=== PATIENT | female | born 1945 | race Caucasian/White ===

== ENCOUNTER 2019-04-05 08:29 | Outpatient (CLI) | payer MEDICARE, SELFPAY ==
--- NOTE | ~2019-04-05 | MM_ITS ---
EXAMINATION: MM screening [facility] BI w krystle HISTORY: Screening mammogram TECHNIQUE: Craniocaudal and mediolateral oblique 3-D tomosynthesis images were obtained and synthetic 2-D images were generated. CAD analysis was submitted and interpreted. COMPARISON: No prior mammogram is available for comparison at this institution. BREAST PARENCHYMAL COMPOSITION: There are scattered areas of fibroglandular density. FINDINGS: There is no evidence of suspicious mass, calcification, or architectural distortion to sugg est malignancy in either breast. There has been no suspicious interval change. IMPRESSION: 1. No mammographic evidence of malignancy. 2. Recommend routine screening mammography in one year. Reviewed, dictated and finalized at location A. [facility]
== END 2019-04-05 08:30 | disposition home or self-care (01) ==
LOC: ANHIMG 08:37
PROVIDERS: PCP Family Medicine; Visit Provider Internal Medicine
DX: Z12.31 Encounter for screening mammogram for malignant neoplasm of breast (principal)
CPT/HCPCS: 77063; 77067

== ENCOUNTER 2020-04-08 08:22 | Outpatient (CLI) | payer MEDICARE, SELFPAY ==
--- NOTE | ~2020-04-08 | MM_ITS ---
EXAMINATION: MM screening [facility] BI w krystle HISTORY: Screening TECHNIQUE: Craniocaudal and mediolateral oblique 3-D tomosynthesis images were obtained and synthetic 2-D images were generated. CAD analysis was submitted and interpreted. COMPARISON: Comparison to multiple prior studies sequentially, with oldest reviewed study dated 04/2015. BREAST PARENCHYMAL COMPOSITION: There are scattered areas of fibroglandular density. FINDINGS: There is no evidence of suspicious mass, calcification, or architectural distortion to sugg est malignancy in either breast. There has been no suspicious interval change. IMPRESSION: 1. No mammographic evidence of malignancy. 2. Recommend routine screening mammography in one year. BI-RADS Category 1: Negative Reviewed, dictated and finalized at location A. 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
== END 2020-04-08 08:23 | disposition home or self-care (01) ==
LOC: ANHIMG 08:26
PROVIDERS: PCP Physician Assistant; Visit Provider Internal Medicine
DX: Z12.31 Encounter for screening mammogram for malignant neoplasm of breast (principal)
CPT/HCPCS: 77063; 77067

== ENCOUNTER 2021-05-05 07:43 | Outpatient (CLI) | payer MEDICARE, SELFPAY ==
--- NOTE | ~2021-05-05 | MM_ITS ---
EXAMINATION: MM screening [facility] BI w krystle HISTORY: Screening mammogram TECHNIQUE: Craniocaudal and mediolateral oblique 3-D tomosynthesis images were obtained and synthetic 2-D images were generated. CAD analysis was submitted and interpreted. COMPARISON: 04/08/2020, 04/05/2019, 03/30/2018 BREAST PARENCHYMAL COMPOSITION: There are scattered areas of fibroglandular density. FINDINGS: There is no suspicious mass, calcification, or architectural distortion to suggest malignan cy in either breast. There has been no suspicious interval change. IMPRESSION: 1. No mammographic evidence of malignancy. 2. Recommend routine screening mammography in one year. BI-RADS Category 1: Negative Reviewed, dictated and finalized at location A.
== END 2021-05-05 07:44 | disposition home or self-care (01) ==
PROVIDERS: PCP Family Medicine; Visit Provider Family Medicine
DX: Z12.31 Encounter for screening mammogram for malignant neoplasm of breast (principal)
CPT/HCPCS: 77063; 77067

== ENCOUNTER 2021-06-23 09:22 | Emergency (ER) | payer MEDICARE, SELFPAY ==
--- NOTE | ~2021-06-23 | XR_ITS ---
EXAMINATION: XR chest 2V 06/23/2021 09:51 INDICATION: Cough PROCEDURE: 2 view chest COMPARISON: 08/18/2006 FINDINGS: The lungs are clear. The cardiomediastinal silhouette is within normal limits. There are no pleural effusions. There is no pneumothorax suspected. IMPRESSION: 1: NO ACUTE CARDIOPULMONARY DISEASE. Reviewed, dictated and finalized at location A.
[2021-06-23 09:30] VITALS: BP 141/74; PULSE 124; RESP 18; TEMP 37.6; O2SAT 98
--- NOTE | 2021-06-23 09:42 | ED.URI ---
HPI - URI/Sore Throat General Chief Complaint: Upper Respiratory Infection Stated Complaint: cough/congestion Time Seen by Provider: 06/23/21 09:32 Source: patient and RN notes reviewed Mode of arrival: ambulatory Limitations: no limitations History of Present Illness HPI Narrative: 75-year-old female presented for complaint of cough for 3 days. She endorses some sinus congestion and postnasal drainage for about 1 week. Cough is nonproductive, it causes urinary incontinence and rib pain. Cough is worse with lying flat. endorses hoarse voice. she denies Shortness of breath, malaise, lethargy, nausea, vomiting, diarrhea, fevers or chills. She has taken [id number] medications without relief. MD elicited complaint: cough Related Data Home Medications Medication Instructions Recorded Confirmed cholecalciferol (vitamin D3) 25 1,000 unit PO DAILY 12/11/18 06/23/21 mcg (1,000 unit) chewable tablet omeprazole magnesium 20 mg 20 mg PO DAILY 12/11/18 06/23/21 capsule,delayed release Allergies Allergy/AdvReac Type Severity Reaction Status Date / Time No Known Allergies Allergy Unknown Verified 06/23/21 09:39 Review of Systems Review of Systems: All systems reviewed & are unremarkable except as noted in HPI and below PMFSH Past Medical History Medical History Benign hypertension Bereavement Cancer of breast CKD (chronic kidney disease) stage 3, GFR 30-59 ml/min Diabetes Hypercholesterolemia Hyperlipidemia associated with type 2 diabetes mellitus Hyperlipidemia LDL goal <70 Overweight (BMI 25.0-29.9) Tachycardia Surgical History Surgical History History of total hysterectomy Family History Family History Other Breast cancer Diabetes mellitus Heart disease Hypertension Social History Social History Second hand tobacco smoke exposure: No Alcohol intake: never Substance use: never Substance use type: does not use Gender identity (if verbalized by the patient): Female Exam Narrative: GENERAL: Ill-appearing, nontoxic HEAD: Normocephalic EYES: conjunctivae clear ENT: Mucous membranes moist. TM pearly peña with dull light reflex bilaterally; no tragal tenderness. Hoarse voice. NECK: Supple. No lymphadenopathy CHEST: Clear to auscultation, breath sounds equal. No wheezing, rhonchi, rales, or stridor. No respiratory distress, speaks in full sentences. HEART: Regular rate and rhythm. No murmur heard. SKIN: Warm, dry, no rash. NEURO: Alert and oriented x3. PSYCH: Normal mood and affect Course Course Emergency Course: Patient is aware of diagnosis, understands and agrees to treatment plan. Anticipatory guidance given. Patient agrees to follow-up as directed and is aware of reasons to seek care at the emergency department. Portions of this record may have been created with voice recognition software Level of Care: Express Care Visit Vital Signs Vital signs: Vital Signs Temperature 99.7 F H 06/23/21 09:30 Pulse Rate 124 H 06/23/21 09:30 Respiratory Rate 18 06/23/21 09:30 Blood Pressure 141/74 H 06/23/21 09:30 Pulse Oximetry 98 06/23/21 09:30 Temperature 99.7 F H 06/23/21 09:30 Pulse Rate 124 H 06/23/21 09:30 Respiratory Rate 18 06/23/21 09:30 Blood Pressure 141/74 H 06/23/21 09:30 Pulse Oximetry 98 06/23/21 09:30 reviewed MDM - URI/Sore Throat MDM Narrative Medical decision making narrative: X-ray unremarkable, reviewed with patient. COVID and flu tests are negative. She is advised on supportive treatments. Antibiotic prescribed if symptoms persist/worsen. She is advised to follow-up with her PCP. For this understanding. She is Differential Diagnosis Differential diagnosis: Likely upper respiratory infection, sinusitis a
== END 2021-06-23 10:11 | disposition home or self-care (01) ==
PROVIDERS: Emergency Provider Nurse Practitioner Family; PCP Family Medicine
DX: J06.9 Acute upper respiratory infection, unspecified (principal); Z20.822 Contact with and (suspected) exposure to COVID-19; I12.9 Hypertensive chronic kidney disease with stage 1 through stage 4 chronic kidney disease, or unspecified chronic kidney disease; E11.22 Type 2 diabetes mellitus with diabetic chronic kidney disease; N18.30 Chronic kidney disease, stage 3 unspecified; Z79.84 Long term (current) use of oral hypoglycemic drugs; E78.00 Pure hypercholesterolemia, unspecified; E78.5 Hyperlipidemia, unspecified; Z85.3 Personal history of malignant neoplasm of breast; Z90.710 Acquired absence of both cervix and uterus
CPT/HCPCS: 71046; 87426; 87804; 99213; C9803; G0463

== ENCOUNTER 2022-02-10 08:00 | Outpatient (CLI) | payer MEDICARE, SELFPAY ==
[2022-02-10 11:00] LABS: Kit Draw Collected
== END 2022-02-10 08:01 | disposition home or self-care (01) ==
LOC: ANHGOSHLAB 08:03
PROVIDERS: PCP Family Medicine; Visit Provider Family Medicine
DX: Z00.00 Encounter for general adult medical examination without abnormal findings (principal); E78.2 Mixed hyperlipidemia; E11.9 Type 2 diabetes mellitus without complications; N18.30 Chronic kidney disease, stage 3 unspecified; E03.9 Hypothyroidism, unspecified; R53.83 Other fatigue
CPT/HCPCS: 36415

== ENCOUNTER 2022-06-18 07:16 | Outpatient (CLI) | payer MEDICARE, SELFPAY ==
--- NOTE | ~2022-06-18 | MM_ITS ---
EXAMINATION: MM screening [facility] BI w krystle HISTORY: Screening mammogram TECHNIQUE: Craniocaudal and mediolateral oblique 3-D tomosynthesis images were obtained and synthetic 2-D images were generated. CAD analysis was submitted and interpreted. COMPARISON: 05/05/2021, 04/08/2020, 04/05/2019 BREAST PARENCHYMAL COMPOSITION: There are scattered areas of fibroglandular density. FINDINGS: RIGHT BREAST: A focal asymmetry is present in the posterior third of the slightly upper breast approx imately 9.5 cm from the nipple.. LEFT BREAST: No suspicious mass, calcification, or architectural distortion are identified to suggest malignancy. There has been no suspicious interval change. IMPRESSION: 1. Focal asymmetry of the right breast. 2. Additional mammographic views and possible breast ultrasound are recommended. BI-RADS Category 0: Incomplete: Needs additional imaging evaluation. Reviewed, dictated and finalized at location A. IMPRESSION: 1. Focal asymmetry of the right breast. 2. Additional mammographic views and possible breast ultrasound are recommended . BI-RADS Category 0: Incomplete: Needs additional imaging evaluation.
== END 2022-06-18 07:17 | disposition home or self-care (01) ==
LOC: ANHIMG 07:17
PROVIDERS: PCP Family Medicine; Visit Provider Physician Assistant
DX: Z12.31 Encounter for screening mammogram for malignant neoplasm of breast (principal); R92.8 Other abnormal and inconclusive findings on diagnostic imaging of breast
CPT/HCPCS: 77063; 77067

== ENCOUNTER 2022-06-21 07:45 | Outpatient (CLI) | payer MEDICARE, SELFPAY ==
--- NOTE | ~2022-06-21 | DEXA_ITS ---
Bone Density Report Name: JARRETT KENNEDY Age: 76 Sex: Female Ethnicity: White Date of : 1945 Indication: postmenopausal; screening for osteoporosis; cancer; hysterectomy; Referring Provider: ROGERIO CREWS Study: Bone densitometry was performed. Exam Date: June 21, 2022 Accession number: [id number] Bone Density: Region BMD T-score Z-score Classification AP Spine(L1-L4) 1.217 1.5 4.0 Normal Femoral Neck (Left) 0.847 0.0 2.1 Normal Total Hip (Left) 1.031 0.7 2.6 Normal Femoral Neck (Right) 0.762 -0.8 1.4 Normal Total Hip (Right) 0.917 -0.2 1.7 Normal Total Hip Mean 0.974 0.3 2.2 Normal World Health Organization criteria for BMD impression classify patients as: Normal (T-score at or above -1.0), Osteopenia (T-score between -1.0 and -2.5), or Osteoporosis (T-score at or below -2.5). 10-year Fracture Risk: FRAX not reported because: All T-scores for Spine Total, Hip Total, Femoral Neck at or above -1.0 Clinical Information Provided by Patient: Has used the following medications: Vitamin D Has the following medical conditions: Cancer, Hysterectomy Patient maximum height was 64 Menopause Age: 50 Drinks caffeinated beverages Onset of menses at age 14 Number of children 3 Impression: The patient has normal bone mass. Discussion: BONE DENSITY IS ABOVE THE MINIMUM DESIRABLE LEVEL AT ALL SKELETAL SITES TESTED. This patient?s bone mineral density is above the minimum desirable level (T-score -1.0 or better) at all sites measured. The patient should follow a healthful lifestyle (good nutrition with adequate calcium and vitamin D, and appropriate weight-bearing exercise). Follow-Up: Consider repeating this study in 5 years or sooner if there is some new clinical indication. Reported by: [facility] on 06/21/2022 8:14:00 AM. Reviewed, dictated and finalized at location ARambo PRECIADO
== END 2022-06-21 07:46 | disposition home or self-care (01) ==
PROVIDERS: PCP Family Medicine; Visit Provider Family Medicine
DX: Z78.0 Asymptomatic menopausal state (principal)
CPT/HCPCS: 77080

== ENCOUNTER 2022-07-08 12:12 | Outpatient (CLI) | payer MEDICARE, SELFPAY ==
--- NOTE | ~2022-07-08 | MMUS_ITS ---
EXAMINATION: MM diagnostic vanessa RT w krystle, US breast RT limited HISTORY: Focal mammographic asymmetry reported in the posterior third of the slightly upper right nona ast approximately 9.5 cm from the nipple on 06/18/2022 screening mammogram TECHNIQUE: Additional 3-D tomosynthesis images of the right breast were performed and synthetic 2-D i mages were generated. CAD analysis was submitted and interpreted. High resolution upper outer quadran t left breast ultrasound was performed. COMPARISON: 06/18/2012, 05/05/2021 bilateral screening mammogram examinations FINDINGS: MAMMOGRAPHIC FINDINGS: Up to approximately 6-7 mm irregular spiculated mass is noted posteriorly in the upper outer quadrant of the right breast, a new finding since 05/05/2021. This is mammographically very suspicious. No other suspicious mass or architectural distortion is noted. ULTRASOUND: 10:00 7 cm from nipple: Irregular hypoechoic approximately 5 mm lesion is noted, corresponding to archana roximate position of the mammographic abnormality; biopsy is recommended. IMPRESSION: 1. Very suspicious mammographic and ultrasound mass in the posterior upper outer quadrant right breas t at 10:00 7 cm from nipple 2. Ultrasound-guided biopsy of right breast 10:00 lesion is recommended BI-RADS category 4, suspicious findings. Dr. Edmonds telephoned the report and ultrasound-guided biopsy recommendation on the right breast 10:00 lesion on 07/08/[address] Britton. Reviewed, dictated and finalized at location A. IMPRESSION: 1. Very suspicious mammographic and ultrasound mass in the posterior upper oute r quadrant right breast at 10:00 7 cm from nipple 2. Ultrasound-guided biopsy of right breast 10:00 lesion is recommended BI-RADS category 4, suspicious findings. Dr. Edmonds telephoned the report and ultrasound-guided biopsy recommendation on t he right breast 10:00 lesion on 07/08/20[address] Britton.
== END 2022-07-08 12:13 | disposition home or self-care (01) ==
LOC: ANHIMG 12:13
PROVIDERS: PCP Family Medicine; Visit Provider Physician Assistant
DX: R92.8 Other abnormal and inconclusive findings on diagnostic imaging of breast (principal)
CPT/HCPCS: 76642; 77061; 77065; G0279

== ENCOUNTER 2022-07-26 09:54 | Outpatient (CLI) | payer MEDICARE, SELFPAY ==
--- NOTE | ~2022-07-26 | MMUS_ITS ---
EXAMINATION: US GUIDED NEEDLE BIOPSY DATE: 07/26/2022 11:25 CDT INDICATION: Up to approximately 6-7 mm irregular spiculated new mammographic mass in posterior upper outer quadrant of right breast reported on 07/08/2022 diagnostic right mammogram, with irregular hypoec hoic approximately 5 mm lesion noted at 10:00 7 cm from nipple on 07/08/2022 Limited right breast ultra sound examination TECHNIQUE AND FINDINGS: The risks and potential benefits of the procedure were discussed with the patient, and written inform ed consent was obtained. Timeout procedure was performed. After sterile preparation of the right radha st, 1% lidocaine was utilized for local anesthesia. A 14G spring-loaded biopsy gun needle was advanced into the hypoechoic lesion at 10:00 7 cm from the nipple from an anteromedial approach. A total of 4 tissue core samples were obtained through the lesi on. An Inrad tissue marker clip was then placed at the biopsy site. Hemostasis was achieved. A steri le bandage was applied. The patient tolerated procedure well and there was no evidence of immediate complication. The patien t was given verbal instructions prior to departing from the department. A two view mammogram was perf ormed to document tissue marker clip placement. Importantly, the tissue marker placement corresponds to the location of the spiculated small mammographic opacity. The tissue samples were submitted to surgical pathology for histologic analysis. IMPRESSION: Ultrasound guided biopsy of right 10:00 breast mass, which corresponds to the mammographic mass of co ncern on post-biopsy mammogram, with biopsy marker placement. Please refer to pathology report for hi stologic analysis. Reviewed, dictated and finalized at Location A. Reviewed, dictated and finalized at location A. IMPRESSION: Ultrasound guided biopsy of right 10:00 breast mass, which corresponds to the m ammographic mass of concern on post-biopsy mammogram, with biopsy marker placem ent. Please refer to pathology report for histologic analysis.
== END 2022-07-26 09:55 | disposition home or self-care (01) ==
PROVIDERS: PCP Family Medicine; Visit Provider Family Medicine
DX: R92.8 Other abnormal and inconclusive findings on diagnostic imaging of breast (principal); D05.11 Intraductal carcinoma in situ of right breast
CPT/HCPCS: 19083; 88305; 88342; 88360; A4648

== ENCOUNTER 2022-08-02 09:27 | Outpatient (CLI) | payer MEDICARE, SELFPAY ==
--- NOTE | 2022-08-02 09:57 | ECG_ITS ---
Measurements Intervals Harleigh Rate: 62 P: 41 DE: 140 QRS: 22 QRSD: 85 T: 35 QT: 403 QTc: 412 Interpretive Statements SINUS RHYTHM NO PREVIOUS ECG AVAILABLE FOR COMPARISON Electronically Signed On 08-02-2022 13:55:54 CDT by Kera Francis M.D.
== END 2022-08-02 09:28 | disposition home or self-care (01) ==
LOC: ANHCARD 09:31
PROVIDERS: PCP Family Medicine; Visit Provider Family Medicine
DX: I10 Essential (primary) hypertension (principal)
CPT/HCPCS: 93005

== ENCOUNTER 2022-08-19 09:42 | Outpatient (CLI) | payer MEDICARE, SELFPAY ==
--- NOTE | ~2022-08-19 | MM_ITS ---
MM_MAGSEEDRT_MG DATE: 08/19/2022 11:23 INDICATION: Breast cancer; preoperative Magseed placement TECHNIQUE: The purpose of the procedure, technique and potential complications were discussed with e patient, who indicated understanding and gave consent. The right breast was placed in compression in craniocaudal position with biopsy grid over the area of interest. The position of the marker was noted. The skin was prepared with sterile Betadine. 1% L idocaine was placed at the skin and underlying subcutaneous tissues. A 12 cm Magseed needle was placed from above on craniocaudal view, the biopsy marker could be felt wi needle introduction. Mediolateral mammographic view showed needle depth, leading to adjustment of the needle to the approp riate depth, with repeat ML view confirming appropriate position. The Magseed was then deployed and the needle removed. Final ML and CC views confirmed the Magseed contiguous with the pre-existing marker in the posterior upper outer quadrant in CC view and within 5.4 mm of the marker inferiorly on ML view COMPARISON: 07/26/2022 post biopsy diagnostic right mammogram IMPRESSION: Mammographically guided Magseed placement at recent marker at posterior upper outer quadr ant of right breast Reviewed, dictated and finalized at Location A. Reviewed, dictated and finalized at location A. IMPRESSION: Mammographically guided Magseed placement at recent marker at poste rior upper outer quadrant of right breast
== END 2022-08-19 09:43 | disposition home or self-care (01) ==
PROVIDERS: PCP Family Medicine; Visit Provider Surgery
DX: C50.911 Malignant neoplasm of unspecified site of right female breast (principal)
CPT/HCPCS: 19281; 99212; A4648; G0463

== ENCOUNTER 2022-09-09 07:50 | Outpatient (CLI) | payer MEDICARE, SELFPAY ==
[2022-09-09 08:35] LABS: Prothrombin Time 13.8 Seconds (11.1-14.7)
[2022-09-09 08:40] LABS: Anion Gap 15 mmol/L (8-16); Blood Urea Nitrogen 18 mg/dL (7-17); Calcium 9.3 mg/dL (8.4-10.2); Carbon Dioxide 19 mmol/L (22-30); Chloride 104 mmol/L (98-107); Estimated Glomerular Filt Rate 48; Glucose 165 mg/dL (65-110); Potassium 3.7 mmol/L (3.4-5.0); Sodium 138 mmol/L (137-145)
== END 2022-09-09 07:51 | disposition home or self-care (01) ==
LOC: ANHSURGERY 07:54
PROVIDERS: Anesthesiology; PCP Family Medicine; Visit Provider Surgery
DX: Z01.812 Encounter for preprocedural laboratory examination (principal); N18.30 Chronic kidney disease, stage 3 unspecified; E11.22 Type 2 diabetes mellitus with diabetic chronic kidney disease; E78.5 Hyperlipidemia, unspecified
CPT/HCPCS: 36415; 80048; 85610; 85730

== ENCOUNTER 2022-09-15 00:22 | Day surgery (SDC) | payer MEDICARE, SELFPAY ==
[2022-09-06 10:50] VITALS: BMI 28.8
--- NOTE | 2022-09-06 11:02 | PC.NURSE ---
PRE-OP INSTRUCTIONS, PLEASE READ CAREFULLY Report to the Outpatient Waiting Room, entrance under the green pavilion located off [facility], at time _1000_ on date _09/15/22_. Planned Procedure Time: _1200_. Time changes happen often and if your time is changed the preop area will call you the afternoon before. - You and your visitor will be asked to self-screen and do not enter if you have any COVID symptoms. - A mask is optional within the hospital at this time. Patients may have clear liquids (water, carbonated beverages, clear teas, apple juice) until 3 hours prior to surgery (0900 AM) with a maximum of 20 ounces. - No food from midnight until time of surgery Take the following medications with a SIP of water the morning of surgery: _NONE_ DO NOT STOP ANY OF YOUR OTHER PRESCRIPTION MEDICATIONS PRIOR TO SURGERY ?EXCEPT THE FOLLOWING Medications to discontinue per physician __NONE__, Date to take last dose Please no make-up, nail lithuanian, hairspray, perfume, deodorant, or body powder the day of surgery. No jewelry (including any body piercings) or valuables the day of surgery, leave them at home. Please take a shower or bath the night before, or the morning of, surgery with an antibacterial soap. Wear comfortable, loose fitting clothing. - Jewelry must be removed prior to entering the operating room. Rings and piercings that are not removed may be cut off. - The hospital will not accept responsibility for valuables. - Please leave all valuables, including medications, at home the day of surgery. If you are going home after surgery, a licensed limousine driver must drive you home. - NO public transportation without another adult if you receive anesthesia. - We recommend that an adult stay with you for 24 hours following discharge. - We also recommend that you do not drive, make important decision, drink alcoholic beverages, or take any drugs that were not prescribed by your health care provider for at least 24 hours after your discharge time. Follow any additional instructions given to you from your surgeon. If you or anyone in your household have experienced Covid symptoms in the past week, please notify your surgeon or the nurse liaison at the phone number below for possible testing. Telephone instructions given to _PATIENT_and asked if any additional questions and then verbalized understanding. Patient advised to call surgeon office or pre surgery nurse liaison [phone] if any additional questions.
[2022-09-15] VITALS (8 sets, daily range): BP systolic 113–128; BP diastolic 59–74; PULSE 60–88; RESP 12–19; TEMP 36.4–36.8; O2SAT 92–100
--- NOTE | ~2022-09-15 | MM_ITS ---
EXAMINATION: MM_FAXITRON_MG INDICATION: Right breast cancer, lumpectomy specimen TECHNIQUE: Three specimen images are submitted for review. COMPARISON: None available FINDINGS: Specimen radiographs demonstrate the biopsy marker and magseed within the specimen these fi ndings were discussed with Dr. Koki Moctezuma MD at 1440 hours on 09/15/2022. IMPRESSION: 1. Biopsy marker and magseed within the specimen radiograph. Reviewed, dictated and finalized at location A.
--- NOTE | ~2022-09-15 | NM_ITS ---
EXAMINATION: NM sentinel node inject only INDICATION: Right breast cancer TECHNIQUE: 1.030 mCi Tc 99m Lymphoseek were injected in 4 aliquots in the upper outer quadrant of the breast near the areola. No images were obtained. IMPRESSION: 1. Status post right breast sentinel lymph node radiopharmaceutical injection. Please refer to proced ure note for full details. Reviewed, dictated and finalized at location A. IMPRESSION: 1. Status post right breast sentinel lymph node radiopharmaceutical injection. Please refer to procedure note for full details.
--- NOTE | 2022-09-15 10:12 | WPDHPUPDATE1 ---
History and Physical Update Update Date/Time: 09/15/22 10:12 History and Physical has been reviewed, including an updated exam of the patient. There are NO changes in the patient's condition. Risks, benefits, and alternatives have been discussed and questions answered. Patient agrees to proceed with procedure.
--- NOTE | 2022-09-15 11:35 | WPDANESEPPF ---
Anes - Initial Pre Proc Eval Procedure: Operation Date: 09/15/22 12:00 Proposed Procedures p Right Breast Lumpectomy with [place] Lymph Node Biopsy - Koki Moctezuma MD Date/Time: 09/15/22 11:35 Surgeon: Koki Moctezuma MD Pre Op Diagnosis: Malignant Neoplasm Unspecified Site Right Breast Patient Data Age: 76 Gender: F Height: 1.63 m Weight: 76.36 kg Allergies Allergy/AdvReac Type Severity Reaction Status Date / Time No Known Allergies Allergy Unknown Verified 09/06/22 10:45 Home Medications Medication Instructions Recorded Confirmed Type cholecalciferol (vitamin D3) 25 1,000 unit PO DAILY 12/11/18 09/06/22 History mcg (1,000 unit) chewable tablet omeprazole magnesium 20 mg 20 mg PO DAILY 12/11/18 09/06/22 History capsule,delayed release simvastatin 20 mg tablet 20 mg PO DAILY #90 tabs 01/31/22 09/06/22 Rx lancets [facility] ea 02/15/22 09/06/22 Rx Lancets) metformin 500 mg tablet,extended 2,000 mg PO DAILY #360 tabs 02/15/22 09/06/22 Rx release 24 hr triamterene 37.5 1 cap PO DAILY #90 caps 02/16/22 09/06/22 Rx mg-hydrochlorothiazide 25 mg capsule blood sugar diagnostic ([facility] e[facility] 05/15/22 09/06/22 Rx Verio test strips) doxazosin 2 mg tablet See Rx Instructions .Route 06/24/22 09/06/22 Rx .COMPLEX #90 tabs glipizide 5 mg tablet, extended 5 mg PO DAILY #90 tabs 08/02/22 09/06/22 Rx release 24 hr semaglutide 3 mg tablet (Rybelsus) 3 mg PO DAILY #90 tabs 08/03/22 09/06/22 Rx lisinopril 20 mg tablet 20 mg PO DAILY #90 tabs 08/16/22 09/06/22 Rx escitalopram oxalate 10 mg tablet 0.5 mg PO HS 09/06/22 09/06/22 History valacyclovir 1 gram tablet 1,000 mg PO Q12H PRN FEAVER 08/01/23 08/01/23 History (Valtrex) BLISTERS Patient hx anesthesia problems: none Family hx anesthesia problems: none Results Review: All pre-operative results and documents have been reviewed as part of the pre-operative evaluation. [facility] Past Medical History Medical History Benign hypertension Bereavement Cancer of breast CKD (chronic kidney disease) stage 3, GFR 30-59 ml/min Diabetes Hypercholesterolemia Hyperlipidemia associated with type 2 diabetes mellitus Hyperlipidemia LDL goal <70 Overweight (BMI 25.0-29.9) Tachycardia Surgical History Surgical History History of total hysterectomy Family History Family History Other Breast cancer Diabetes mellitus Heart disease Hypertension Social History Social History Smoking status: Never smoker Second hand tobacco smoke exposure: No Alcohol intake: never Substance use: never Substance use type: does not use Lack of Transportation: No Lack of Food: Never True Current Housing: I Have Housing Concerned About Future Housing: No Difficulty Paying Gas/Electric Bills: No Difficulty Paying for Meds: No Currently Unemployed: No Education: High School Diploma/GED Difficulty w/ Childcare or Family Care: No Living arrangements: with family Gender identity (if verbalized by the patient): Female Sexual Orientation (if Verbalized by the Patient): Straight or Heterosexual Spiritual care concerns: No Agree to blood products: Yes Anes - Eval Final PreProcedure Day of Procedure 09/15/22 11:35 Patient weight: normal Heart: regular rate and rhythm Lungs: clear to auscultation Airway: Mallampati scale class II Neurological: alert and oriented Last oral intake: >/= 8 hours ASA classification: III Emergent: no Anesthetic plan: proceed Anesthesia type and monitoring: general GIVS and LMA and standard monitoring Results Review: All pre-operative results and documents have been reviewed as part of the pre-operative evaluation. Informed Consent:
[2022-09-15 11:38] LABS: Glucose Point of Care 82 mg/dl (65-105)
[2022-09-15] MEDS: ACETAMINOPHEN 500 MG TABLET 1000 MG PO (11:50)
[2022-09-15] MEDS: LACTATED RINGERS 1,000 ML 30 ML IV CONT ×2 (11:50→14:55)
[2022-09-15] MEDS: ceFAZolin 2 GM/D5W 50 ML 2 GM/50 ML BAG IVPB (12:50)
[2022-09-15] MEDS: BUPIVACAINE/EPINEPHRINE 0.25% 10 ML VIAL 20 ML INFILTRATE (13:35)
[2022-09-15] MEDS: METHYLENE BLUE 0.5% INJ 10 ML AMPULE XX (13:40)
--- NOTE | 2022-09-15 13:46 | SUR.OPER ---
1340: SLN excised and sent to Lab [facility] for confirmation node present in Specimen. 1343: Specimen sent to Lab per Lorraine, PCT. 1347: Specimen received by Jayda in Lab. 1350: Node confirmed per Amadeo (Pathologist). 1424: Lumpectomy excised. 1428: MAMMS notified that breast tissue is being scanned per Faxitron. Awaiting confirmation from Radiologist. 1431: Right Breast Lumpectomy Specimen sent Fresh to Lab.
--- NOTE | 2022-09-15 14:49 | W.PM.PROC2 ---
Procedure Note - Detailed Date of Procedure 09/15/22 Pre-op Diagnosis Invasive ductal carcinoma of right breast Post-op Diagnosis Same Procedure Performed 1. Right lumpectomy with magseed localization 2. Right axillary sentinel lymph node biopsy using dual tracer with lymphoseek and methylene blue 3. Injection of diluted 1:10 methylene blue dye Surgeon Koki Moctezuma MD Matching Machine Operator Merari Hernandez PA-C Anesthesia General Indications 76-year-old female with a previous history right breast DCIS status post lumpectomy 2014 with no adjuvant radiation who presented for? newly diagnosed right breast invasive ductal carcinoma, ER positive, TX negative, HER2 negative, Ki-67 intermediate a 17%,? Soren grade 1.? I discussed with the patient again the surgical options of mastectomy versus lumpectomy as well as expected postoperative recovery course.? Given the patient's previous history of DCIS on the right breast and concern for recurrent disease, I discussed with the patient that I would highly recommend adjuvant radiation in her case to decrease the risk of LRR as well.? Also with her previous history of the DCIS and now with invasive ductal carcinoma, I discussed with the patient that I would likely recommend a sentinel lymph node biopsy in her case, as in the unlikely event that this comes back positive, patient would likely benefit from axillary radiation as well.? Given that she is at higher risk with a previous history as well as the fact that patient does not fit the criteria for the choosing wisely guidelines, again I think she would be a good candidate for sentinel lymph node biopsy in her case specifically.? Risks of the procedure were discussed with the patient which included but not limited to risk of bleeding, infection, recurrence, positive margins, possible need for additional procedures in the future, wound healing problems, asymmetry, scar, pain, damage to nearby structures as well as the risk of anesthesia.? All questions were answered and patient has agreed to proceed.? Description of Procedure Patient was identified in the pre-operative area and brought to the OR suite. She underwent tumor localization previously by IR with magseed placement as well as injection of lymphoseek radiotracer in Nuclear Med. She was laid supine in the operating table and sequential compression devices were applied. General anesthesia was induced without difficulties. The right chest and axillary regions were prepped and draped in a sterile fashion. Dilated methylene blue (10%) was injected into the perioareolar sudermal region as a second tracer. The gamma probe was used to identify the area with highest radioactivity in the axilla, and a small incision was made overlying this area. Dissection was carried down through the subcutaneous tissue into the clavipectoral fascia, which was incised. The probe was again used to scan this area, and a hot and blue node was identified. This was carefully grasped and excised using the Ligasure device. The gamma probe was used to confirm that this node was radioactive with a read of 362. The gamma probe was again used to identify any additional radioactive lymph nodes that 10% or greater count compared to the sentinel node. Once this performed, the lymph node was sent to pathology as permanent specimen. The probe was used to verify that no additional areas of significant radioactivity in the axilla were present, and this was confirmed. The wound was irrigated with saline and hemostasis was assured. The deep dermal layer was closed with 3-0 vicryl followed by 4-0 monocryl for the skin. Dermabond was applied followed by a sterile dressing. Attention was then turned to the breast. The sentimag probe was used to identify the area where the magseed was placed and since this was inferior lateral on exam, decision was made to use a lateral IMF incision. Dissection was carried down through the subcutaneous tissue into the breast tissue. The tumor
[2022-09-15] MEDS: HYDROmorphone HCL INJ (*CRX) 1 MG/ML SYR 0.25 MG IV PUSH ×6 (15:13→15:47)
[2022-09-15 15:17] LABS: Glucose Point of Care 130 mg/dl (65-105)
[2022-09-15] MEDS: oxyCODONE HCL (*CRX) 5 MG TAB IR PO (16:08)
== END 2022-09-15 16:54 | disposition home or self-care (01) ==
PROVIDERS: PCP Family Medicine; Visit Provider Surgery
PROC: (CPT 19301; principal; 2022-09-15 12:00)
DX: C50.911 Malignant neoplasm of unspecified site of right female breast (principal); Z17.0 Estrogen receptor positive status [ER+]; I12.9 Hypertensive chronic kidney disease with stage 1 through stage 4 chronic kidney disease, or unspecified chronic kidney disease; N18.30 Chronic kidney disease, stage 3 unspecified; E11.22 Type 2 diabetes mellitus with diabetic chronic kidney disease; E78.00 Pure hypercholesterolemia, unspecified; E78.5 Hyperlipidemia, unspecified; Z79.84 Long term (current) use of oral hypoglycemic drugs
CPT/HCPCS: 19301; 38525; 38792; 76098; 82948; 88305; 88307; 88329; 88342; A9270; A9520; C1713; J0690; J1170; J3010; J7120; Q9968

== ENCOUNTER 2023-01-25 08:21 | Outpatient (CLI) | payer MEDICARE, SELFPAY ==
[2023-01-25 08:43] LABS: Basophils Absolute Auto 0.1 K/mm3 (0.0-0.1); Basophils Percent Auto 0.6 % (0.2-1.2); Eosinophils Absolute Auto 0.2 K/mm3 (0-0.3); Eosinophils Percent Auto 1.9 % (0-4.4); Hematocrit 35.8 % (37.0-47.0); Hemoglobin 11.2 g/dL (12.0-15.0); Immature Granulocyte Absolute 0.03 K/mm3 (0.00-0.031); Immature Granulocyte Percent A 0.4 % (0-0.5); Lymphocytes Absolute Auto 2.01 K/mm3 (0.9-3.2); Lymphocytes Percent Auto 26.1 % (18.3-44.2); Mean Corpuscular HGB Conc 31.3 g/dl (32-36); Mean Corpuscular Hemoglobin 25.7 pg (26-34); Mean Corpuscular Volume 82.3 fl (80-100); Mean Platelet Volume 8.9 fl (7.4-10.4); Monocytes Absolute Auto 0.5 K/mm3 (0.1-0.6); Neutrophils Absolute Auto 4.9 K/mm3 (1.3-6.7); Platelet Count Result 236 k/mm3 (150-375); Red Blood Count 4.35 M/mm3 (4.2-5.4); Red Cell Distribution Width 14.5 % (11.5-14.5); White Blood Count 7.7 K/mm3 (4.5-10.0)
[2023-01-25 10:12] LABS: Alanine Aminotransferase 16 U/L (6-35); Alkaline Phosphatase 76 U/L (38-126); Anion Gap 7 mmol/L (8-16); Aspartate Amino Transferase 22 U/L (14-36); Bilirubin,Total 0.7 mg/dL (0.2-1.3); Blood Urea Nitrogen 16 mg/dL (7-17); Carbon Dioxide 26 mmol/L (22-30); Chloride 104 mmol/L (98-107); Cholesterol 143 mg/dL (0-200); Estimated Glomerular Filt Rate 48; Glucose 91 mg/dL (65-110); HDL Direct 42 mg/dL; Potassium 3.6 mmol/L (3.4-5.0); Sodium 137 mmol/L (137-145); Triglycerides 160 mg/dL (<150)
[2023-01-25 10:18] LABS: Hemoglobin A1C 6.7 % (<5.7)
[2023-01-25 10:24] LABS: LDL Cholesterol Direct 72 mg/dL
[2023-01-31 14:39] LABS: CA 15-3 8 U/mL (<32)
== END 2023-01-25 08:22 | disposition home or self-care (01) ==
LOC: ANHLAB 08:23
PROVIDERS: PCP Family Medicine; Visit Provider Internal Medicine Hematology & Oncology
DX: E78.2 Mixed hyperlipidemia (principal); E11.9 Type 2 diabetes mellitus without complications; R53.83 Other fatigue; C50.411 Malignant neoplasm of upper-outer quadrant of right female breast
CPT/HCPCS: 36415; 80053; 80061; 83036; 84443; 85025; 86300

== ENCOUNTER 2023-04-21 12:00 | Outpatient (CLI) | payer MEDICARE, SELFPAY ==
--- NOTE | ~2023-04-21 | MMUS_ITS ---
EXAMINATION: MM diagnostic vanessa BI w krystle, US breast RT limited HISTORY: Postoperative lump and tenderness. Status post right partial mastectomy and radiotherapy for breast cancer TECHNIQUE: Additional 3-D tomosynthesis images of were performed and synthetic 2-D images were genera vero. CAD analysis was submitted and interpreted. High resolution breast ultrasound was performed. COMPARISON: 07/08/2022 diagnostic right mammogram and limited right breast ultrasound FINDINGS: MAMMOGRAPHIC FINDINGS: Approximately 4.3 x greater than 5 cm circumscribed low-density mass is noted in the right axillary t ail area. Additional approximately 1.5 x 2.1 cm low-density opacity is noted in the right axilla. Multiple surgical clips are noted in the posterior outer mid to upper right breast. Scattered bilateral benign calcifications are noted. ULTRASOUND: Subjacent to the surgical incision the right axillary area is a 1.5 x 1.4 x 1.9 cm sonolucency with t hrough transmission posterior enhancement, most consistent with postoperative seroma. At 9:00 11 cm from the nipple at the area of incision is a circumscribed sonolucency measuring approx imately 3 x 6 cm, likely postoperative seroma. IMPRESSION: 1. Probable postoperative seromas in the right axillary tail and right axilla 2. Routine annual mammographic screening is recommended, with supplemental imaging as clinically appr opriate BI-RADS Category 2: Benign finding(s). Reviewed, dictated and finalized at location A. IMPRESSION: 1. Probable postoperative seromas in the right axillary tail and right axilla 2. Routine annual mammographic screening is recommended, with supplemental imag ing as clinically appropriate BI-RADS Category 2: Benign finding(s).
== END 2023-04-21 12:01 | disposition home or self-care (01) ==
LOC: ANHIMG 12:02
PROVIDERS: PCP Family Medicine; Visit Provider Physician Assistant Surgical
DX: N63.11 Unspecified lump in the right breast, upper outer quadrant (principal); R92.8 Other abnormal and inconclusive findings on diagnostic imaging of breast
CPT/HCPCS: 76642; 77062; 77066; G0279

== ENCOUNTER 2023-04-27 08:15 | Outpatient (CLI) | payer MEDICARE, SELFPAY ==
[2023-04-27 08:36] LABS: Basophils Percent Auto 0.6 % (0.2-1.2); Eosinophils Absolute Auto 0.1 K/mm3 (0-0.3); Eosinophils Percent Auto 1.8 % (0-4.4); Hematocrit 36.7 % (37.0-47.0); Hemoglobin 11.5 g/dL (12.0-15.0); Immature Granulocyte Absolute 0.02 K/mm3 (0.00-0.031); Immature Granulocyte Percent A 0.3 % (0-0.5); Lymphocytes Absolute Auto 1.75 K/mm3 (0.9-3.2); Lymphocytes Percent Auto 25.8 % (18.3-44.2); Mean Corpuscular HGB Conc 31.3 g/dl (32-36); Mean Corpuscular Hemoglobin 25.5 pg (26-34); Mean Corpuscular Volume 81.4 fl (80-100); Mean Platelet Volume 9.1 fl (7.4-10.4); Monocytes Absolute Auto 0.4 K/mm3 (0.1-0.6); Monocytes Percent Auto 5.7 % (2.6-8.5); Neutrophils Absolute Auto 4.5 K/mm3 (1.3-6.7); Neutrophils Percent Auto 65.8 % (45.5-73.1); Platelet Count Result 244 k/mm3 (150-375); Red Blood Count 4.51 M/mm3 (4.2-5.4); White Blood Count 6.8 K/mm3 (4.5-10.0)
[2023-04-27 17:01] LABS: Alanine Aminotransferase 17 U/L (6-35); Albumin Level 4.2 g/dL (3.5-5.1); Alkaline Phosphatase 64 U/L (38-126); Anion Gap 8 mmol/L (8-16); Aspartate Amino Transferase 25 U/L (14-36); Bilirubin,Total 0.5 mg/dL (0.2-1.3); Blood Urea Nitrogen 19 mg/dL (7-17); Calcium 9.4 mg/dL (8.4-10.2); Carbon Dioxide 22 mmol/L (22-30); Chloride 107 mmol/L (98-107); Estimated Glomerular Filt Rate > 60; Glucose 168 mg/dL (65-110); Potassium 3.8 mmol/L (3.4-5.0); Sodium 137 mmol/L (137-145)
[2023-04-30 07:59] LABS: CA 15-3 7 U/mL (<32)
== END 2023-04-27 08:16 | disposition home or self-care (01) ==
PROVIDERS: PCP Family Medicine; Visit Provider Internal Medicine Hematology & Oncology
DX: C50.411 Malignant neoplasm of upper-outer quadrant of right female breast (principal); Z17.0 Estrogen receptor positive status [ER+]
CPT/HCPCS: 36415; 80053; 85025; 86300

== ENCOUNTER → 2023-05-15 08:45 | Outpatient (REF) | payer MEDICARE, SELFPAY | LOC: ANHLAB 08:45 | PROVIDERS: PCP Family Medicine; Visit Provider Surgery | DX: C50.911 Malignant neoplasm of unspecified site of right female breast (principal); N64.89 Other specified disorders of breast | CPT/HCPCS: 88108; 88305 ==

== ENCOUNTER 2023-07-21 08:40 | Outpatient (CLI) | payer MEDICARE, SELFPAY ==
[2023-07-21 09:37] LABS: Basophils Absolute Auto 0.1 K/mm3 (0.0-0.1); Basophils Percent Auto 0.7 % (0.2-1.2); Eosinophils Absolute Auto 0.1 K/mm3 (0-0.3); Eosinophils Percent Auto 1.4 % (0-4.4); Hematocrit 35.3 % (37.0-47.0); Hemoglobin 11.1 g/dL (12.0-15.0); Immature Granulocyte Absolute 0.02 K/mm3 (0.00-0.031); Immature Granulocyte Percent A 0.3 % (0-0.5); Lymphocytes Percent Auto 29.2 % (18.3-44.2); Mean Corpuscular HGB Conc 31.4 g/dl (32-36); Mean Corpuscular Hemoglobin 25.4 pg (26-34); Mean Corpuscular Volume 80.8 fl (80-100); Mean Platelet Volume 9.7 fl (7.4-10.4); Monocytes Absolute Auto 0.5 K/mm3 (0.1-0.6); Monocytes Percent Auto 6.4 % (2.6-8.5); Neutrophils Absolute Auto 4.5 K/mm3 (1.3-6.7); Platelet Count Result 235 k/mm3 (150-375); Red Blood Count 4.37 M/mm3 (4.2-5.4); Red Cell Distribution Width 15.3 % (11.5-14.5); White Blood Count 7.2 K/mm3 (4.5-10.0)
[2023-07-21 16:41] LABS: Alanine Aminotransferase 14 U/L (6-35); Albumin Level 4.1 g/dL (3.5-5.1); Alkaline Phosphatase 67 U/L (38-126); Anion Gap 10 mmol/L (4-12); Aspartate Amino Transferase 20 U/L (14-36); Bilirubin,Total 0.4 mg/dL (0.2-1.3); Blood Urea Nitrogen 14 mg/dL (7-17); Calcium 8.9 mg/dL (8.4-10.2); Carbon Dioxide 21 mmol/L (22-30); Chloride 109 mmol/L (98-107); Estimated Glomerular Filt Rate 54; Glucose 151 mg/dL (65-110); Potassium 3.8 mmol/L (3.4-5.0); Sodium 140 mmol/L (137-145)
[2023-07-25 06:33] LABS: CA 15-3 6 U/mL (<32)
== END 2023-07-21 08:41 | disposition home or self-care (01) ==
LOC: ANHLAB 08:42
PROVIDERS: PCP Family Medicine; Visit Provider Internal Medicine Hematology & Oncology
DX: C50.411 Malignant neoplasm of upper-outer quadrant of right female breast (principal); Z17.0 Estrogen receptor positive status [ER+]
CPT/HCPCS: 36415; 80053; 85025; 86300

== ENCOUNTER 2023-10-27 08:15 | Outpatient (CLI) | payer MEDICARE, SELFPAY ==
[2023-10-27 08:35] LABS: Basophils Absolute Auto 0.1 K/mm3 (0.0-0.1); Basophils Percent Auto 0.9 % (0.2-1.2); Eosinophils Absolute Auto 0.1 K/mm3 (0-0.3); Eosinophils Percent Auto 1.3 % (0-4.4); Immature Granulocyte Absolute 0.02 K/mm3 (0.00-0.031); Immature Granulocyte Percent A 0.3 % (0-0.5); Lymphocytes Absolute Auto 1.74 K/mm3 (0.9-3.2); Mean Corpuscular HGB Conc 31.7 g/dl (32-36); Mean Corpuscular Hemoglobin 27.4 pg (26-34); Mean Corpuscular Volume 86.3 fl (80-100); Mean Platelet Volume 9.2 fl (7.4-10.4); Monocytes Absolute Auto 0.4 K/mm3 (0.1-0.6); Monocytes Percent Auto 5.7 % (2.6-8.5); Neutrophils Absolute Auto 4.4 K/mm3 (1.3-6.7); Neutrophils Percent Auto 65.8 % (45.5-73.1); Platelet Count Result 238 k/mm3 (150-375); Red Blood Count 4.75 M/mm3 (4.2-5.4); Red Cell Distribution Width 14.6 % (11.5-14.5); White Blood Count 6.7 K/mm3 (4.5-10.0)
[2023-10-27 10:52] LABS: Alanine Aminotransferase 18 U/L (6-35); Albumin Level 4.4 g/dL (3.5-5.1); Alkaline Phosphatase 74 U/L (38-126); Anion Gap 11 mmol/L (4-12); Aspartate Amino Transferase 25 U/L (14-36); Bilirubin,Total 0.6 mg/dL (0.2-1.3); Blood Urea Nitrogen 16 mg/dL (7-17); Calcium 9.5 mg/dL (8.4-10.2); Carbon Dioxide 25 mmol/L (22-30); Chloride 102 mmol/L (98-107); Cholesterol 136 mg/dL (0-200); Estimated Glomerular Filt Rate 48; Glucose 123 mg/dL (65-110); HDL Direct 46 mg/dL; Potassium 4.1 mmol/L (3.4-5.0); Sodium 138 mmol/L (137-145); Triglycerides 111 mg/dL (<150)
[2023-10-27 11:02] LABS: LDL Cholesterol Direct 64 mg/dL
[2023-10-27 11:53] LABS: Hemoglobin A1C 6.6 % (<5.7)
[2023-10-28 11:38] LABS: CA 15-3 9 U/mL (<32)
== END 2023-10-27 08:16 | disposition home or self-care (01) ==
LOC: ANHLAB 08:19
PROVIDERS: PCP Family Medicine; Visit Provider Internal Medicine Hematology & Oncology
DX: E11.9 Type 2 diabetes mellitus without complications (principal); E78.2 Mixed hyperlipidemia; R53.83 Other fatigue; C50.411 Malignant neoplasm of upper-outer quadrant of right female breast; Z17.0 Estrogen receptor positive status [ER+]
CPT/HCPCS: 36415; 80053; 80061; 83036; 84443; 85025; 86300

== ENCOUNTER 2023-11-23 11:16 | Outpatient (CLI) | payer MEDICARE, SELFPAY ==
--- NOTE | ~2023-11-23 | MMUS_ITS ---
EXAMINATION: MM diagnostic vanessa RT w krystle, US breast RT limited HISTORY: Palpable right breast lump in the upper inner quadrant TECHNIQUE: Additional 3-D tomosynthesis images of the right breast were performed and synthetic 2-D i mages were generated. CAD analysis was submitted and interpreted. High resolution Limited right breas t ultrasound was performed. COMPARISON: Comparison to multiple prior studies sequentially, with oldest reviewed study dated 06/18. BREAST PARENCHYMAL COMPOSITION: Not dense: There are scattered areas of fibroglandular density. FINDINGS: MAMMOGRAPHIC FINDINGS: Stable surgical change in the upper outer quadrant of the right breast with nearby seroma which has d ecreased in size compared with prior examination. No new masses, calcifications or architectural dist ortion to suggest malignancy. ULTRASOUND: Limited right breast ultrasound: Normal heterogeneous echotexture without focal solid or cystic mass. IMPRESSION: 1. No evidence for malignancy in the right breast. Stable post surgical change. 2. Routine yearly screening mammogram and regular clinical breast examination are recommended. BI-RADS Category 2: Benign finding(s). Reviewed, dictated and finalized at location B. IMPRESSION: 1. No evidence for malignancy in the right breast. Stable post surgical change. 2. Routine yearly screening mammogram and regular clinical breast examination a re recommended. BI-RADS Category 2: Benign finding(s).
== END 2023-11-23 11:17 | disposition home or self-care (01) ==
LOC: ANHIMG 11:17
PROVIDERS: PCP Family Medicine; Visit Provider Surgery
DX: C50.911 Malignant neoplasm of unspecified site of right female breast (principal); N63.10 Unspecified lump in the right breast, unspecified quadrant; N64.89 Other specified disorders of breast; Z98.890 Other specified postprocedural states
CPT/HCPCS: 76642; 77061; 77065; G0279

== ENCOUNTER 2024-04-15 08:47 | Outpatient (CLI) | payer MEDICARE, SELFPAY ==
--- OUTSIDE RECORDS SUMMARY | 2024-04-15 09:30 | XMS_ITS | Patient Health Summary ---
Author Organization [facility] Address [address] [place] [address] Care Team Providers Care Preschool Teacher'S Assistant Name Role Phone Brennan Kendrick MD Primary Care Provider [phone] Note from [facility],non-owned Affiliates and Associated Physician Practices is amultiple site organization consisting of ambulatory clinics and hospital sitesin [place] and [place]. This disclosure is being madepursuant to the Care Everywhere program and may not contain all information available regarding this patient. Last updated 17.[facility] Social History Tobacco Use Types Packs/Day Years Used Date Smoking Tobacco: Never Assessed Sex and Gender Information Value Date Recorded Sex Assigned at Not on file Gender Identity Not on file Sexual Orientation Not on file Procedures * MRI BREAST BILAT WWO CONTRAST(Performed 04/09/2014) Results * MRI BREAST BILAT WWO CONTRAST (04/09/2014 12:13 PM EVALUATION SPECIALIST) Anatomical Region Laterality Modality Breast Bilateral Other Impressions 04/09/2014 1:10 PM EVALUATION SPECIALIST IMPRESSION: BI-RADS category 6,biopsy proven malignancy. Known malignancy is seen as postbiopsy change in the lower outer right breast. Appropriate surgical management is recommended. No suspicious findings within the left breast, and fibrocystic changes are seen bilaterally. No enlarged lymph nodes appreciated. This report was electronically signed by SANDRA CHRISTIE M.D. on 04/09/2014 1:10 PM . Narrative 04/09/2014 1:10 PM EVALUATION SPECIALIST MRI of the breasts with and without contrast COMPARISON: Diagnostic mammograms obtained 03/14/2014 at 10/04/2013, postbiopsy mammograms of the right breast obtained 03/27/2014 HISTORY: BREAST CANCER, SURGICAL PLANNING TECHNIQUE: Multiplanar multisequence MR imaging of both breasts before and following the administration of intravenous gadolinium contrast. Dynamic phase imaging was performed in the axial plane. Exam processed by and interpreted on a [employer] service observer chief including 3-D volume rendering, subtraction image processing and contrast kinetic analysis. 7.5 cc of Gadovist intravenous. FINDINGS: Degree of postcontrast parenchymal enhancement: Mild. Amount of fibroglandular tissue: Scattered fibroglandular tissue. RIGHT: A 8 mm postbiopsy seroma containing a biopsy marker and minimal rim enhancement is noted in the lower outer right breast, consistent with prior stereotactic breast biopsy. No suspicious enhancing mass or non-mass enhancement is seen within the right breast. A focus of skin enhancement is noted overlying the biopsy site and may represent the entry site. Right axillary lymph nodes are not enlarged. Scattered nonspecific enhancing foci as well as nonenhancing cysts are seen within the right breast. LEFT: No suspicious enhancing mass or non-mass enhancement is seen within the left breast. Left axillary lymph nodes are not enlarged. Scattered nonspecific enhancing foci as well as nonenhancing cysts are seen within the left breast. Procedure Note Neetu Christie MD - 05/06/2017 MRI of the breasts with and without contrast COMPARISON: Diagnostic mammograms obtained 03/14/2014 at 10/04/2013,postbiopsy mammograms of the right breast obtained 03/27/2014 HISTORY: BREAST CANCER, SURGICAL PLANNING TECHNIQUE: Multiplanar multisequence MR imaging of both breasts before and followingthe administration of intravenous gadolinium contrast. Dynamic phaseimaging was performed in the axial plane. Exam processed by andinterpreted on a [employer] service observer chief including 3-D volume rendering, subtraction image processing and contrast kineticanalysis. 7.5 cc of Gadovist intravenous. FINDINGS: Degree of postcontrast parenchymal enhancement: Mild. Amount of fibroglandular tissue: Scattered fibroglandular tissue. RIGHT: A 8 mm postbiopsy seroma containing a biopsy marker and minimal rimenhancement is noted in the lower outer right breast, consistent withprior stereotactic breast biopsy. No suspicious enhancing mass or non-massenhancement is seen within the right breast. A focus of skin enhancement is noted overlying the biopsy site andmay represent the entry site. Right axillary lymph nodes are not enlarged.Scattered nonspecific enhancing foci as well as nonenhancing cysts areseen within the right breast. LEFT: No suspicious enhancing mass or non-mass enhancement is seen within theleft breast. Left axillary lymph nodes are not enlarged. Scatterednonspecific enhancing foci as well as nonenhancing cysts are seen withinthe left breast. IMPRESSION IMPRESSION: BI-RADS category 6,biopsy proven malignancy. Known malignancy is seen as postbiopsy change in the lower outer rightbreast. Appropriate surgical management is recommended. No suspicious findings within the left breast, and fibrocystic changes areseen bilaterally. No enlarged lymph nodes appreciated. This report was electronically signed by SANDRA CHRISTIE M.D. on04/09/2014 1:10 PM . Historical Provider MR ORDERABLES Care Teams Preschool Teacher'S Assistant Relationship Specialty Start Date End Date Brennan Kendrick MD [address] [place] [address] PCP - General 04/01/14
--- OUTSIDE RECORDS SUMMARY | 2024-04-15 09:30 | XMS_ITS | Clinical Summary ---
Author Organization [facility] Address [address] [place] [id number] Care Team Providers Care Fur Designer Name Role Phone Margarita Britton MD Primary Care Provider [phone] Social History Tobacco Use Types Packs/Day Years Used Date Smoking Tobacco: Never Assessed Comments Unknown Sex and Gender Information Value Date Recorded Sex Assigned at Not on file Legal Sex Female 7:52 PM CDT Gender Identity Not on file Sexual Orientation Not on file Plan of Treatment Health Maintenance Due Date Last Done Comments Hepatitis C 12/06/1963 Zoster Vaccines (1 of 2) 12/06/1995 DTaP, Tdap and Td Vaccines ( 1 - Tdap) 10/30/2009 10/29/2009 Annual Medicare Wellness Visit 2010 Dexa Scan (General) 2010 RSV Immunization or 60+ Years (1 - 1-dose 75+ series) 2020 COVID-19 Vaccine (2023-2 5 season) 2023 Influenza Adult (#1) 2023 11/16/2016 Pneumococcal Vaccine: 65+ Years Completed 03/20/2015, 12/13/2010 Meningococcal B Vaccine Aged Out No l onger eligible based on patient's age to complete this topic Meningococcal Vaccine Aged Out No sukumar irma eligible based on patient's age to complete this topic RSV Immunizations Under 20 Months Aged Out No longer eligible b ased on patient's age to complete this topic Insurance MEDICARE [facility] Care Teams Fur Designer Relationship Specialty Start Date End Date Margarita Britton MD [address] [place] [address] PCP - General FAMILY PRACTICE 10/20/20
--- OUTSIDE RECORDS SUMMARY | 2024-04-15 09:30 | XMS_ITS | Continuity of Care Document ---
Author Organization [facility] Address [id number] [place] [address] [address] [place] [address] Phone Care Team Providers Care Open Hearth Melter Name Role Phone Chavira OD, Sheng Unavailable Unavailable Advance Directives Directive Yes / No Effective Date File Name No Information Encounters Encounter Description Practice Location Reason(s) For Visit Diagnoses Date Provider Providers Copied on Encounter [facility], [address], [place], [place], [id number], [place] tel:[phone] [facility] No Information 2-200 6 Chavira OD Sheng. [address] , [address], [place], [address], [place]. tel:[phone] Family History Family Member Type Diagnosis Age [...]
--- OUTSIDE RECORDS SUMMARY | 2024-04-15 09:30 | XMS_ITS | Clinical Summary ---
Author Organization [facility] Address [address] [place] [address] Care Team Providers Care Croze Cutter Helper Name Role Phone Margarita Britton MD Primary Care Provider [phone] Allergies No known active allergies Medications valACYclovir (VALTREX) 1 gram tablet TK 2 TS PO Q 12 H X 1 DAY 1 03/29/2018 Active triamterene-hydr oCHLOROthiazide 50-25 mg capsule Act anay simvastatin (ZOCOR) 20 mg tablet TK 1 T PO D 0 02/23/2018 Active quinapril (ACCUPRIL) 40 mg tablet TK 1 T PO BID 3 03/12/2018 Active omeprazole (PriLOSEC) 20 mg Tablet, Delayed Release (E.C.) Activ e metFORMIN (GLUCOPHAGE XR) 500 mg Extended Release 24 hour tablet Take 1,000 mg by mouth daily with breakfast. 1 03/29/2018 Active ONE TOUCH DELICA 33 gauge USE ONCE D UTD 3 03/29/2018 Active doxazosin (CARDURA) 2 mg tablet TK 1 T PO QD 2 02/05/2018 Active cholecalciferol, vitamin D3, 1,000 unit Active ONETOUCH VERIO Strip TEST BS QD 2 03/29/2018 Active glipiZIDE (GLUCOTROL XL) 5 mg Extended Release 24 hour tablet Take 5 mg by mouth daily with breakfast. Active lisinopriL (PRINIVIL) 20 mg tablet Take 20 mg by mouth daily. Active ESCITALOPRAM OXALATE ORAL Take 5 mg by mouth. Active cetirizine (ZyrTEC) 5 mg tablet Take 5 mg by mouth daily. Active anastrozole (ARIMIDEX) 1 mg tablet TAKE 1 TABLET(1 MG) BY MOUTH DAILY 90 Tablet 3 11/23/2023 Active Active Problems Problem Noted Date Diagnosed Date Ductal carcinoma in situ (DCIS) of right breast 04/05/2018 SERM use (selective estrogen receptor modulator) 04/05/2018 Encounters Date Type Department Care Team Description 03/27/2024 External Device Data STL ABSTRACTION Provider, Abstract 03/11/2024 Orders Only [facility] Oncology [facility] [place] [place] [address] [place] [address] Pola Marquez MD 03/08/2024 10:00 AM CLINICAL TRIALS NURSE Office Visit [facility] and [facility] [address] [place] [address] Pola Marquez MD Malignant neoplasm of upper-outer quadrant of right breast in female, estrogen receptor positive (CMS/HCC) (Primary Dx) 03/06/2024 External Device Data STL ABSTRACTION Provider, Abstract 03/04/2024 Orders Only [facility] [place] [place] [address] [place] [address] Pola Marquez MD 02/29/2024 External Device Data STL ABSTRACTION Provider, Abstract from Last 3 Months Family History Relation Name Status Comments Brother Daughter Father Mother Sister Son 1 Alive Son 2 Alive Social History Tobacco Use Types Packs/Day Years Used Date Smoking Tobacco: Never Tobacco Cessation:Counseling Given: Not Answered Alcohol Use Standard Drinks/Week Comments No 0 (1 standard drink = 0.6 oz pur e alcohol) Comments No Sex and Gender Information Value Date Recorded Sex Assigned at Not on file Legal Sex Female 9:40 AM CLINICAL TRIALS NURSE Gender Identity Not on file Sexual Orientation Not on file Last Filed Vital Signs Vital Sign Reading Time Taken Comments Blood Pressure 135/77 03/08/2024 9:47 AM CLINICAL TRIALS NURSE Pulse 83 03/08/2024 9:47 AM CLINICAL TRIALS NURSE Temperature 36.7 C (98.1 F) 03/08/2024 9:47 AM CLINICAL TRIALS NURSE Respiratory Rate 16 03/08/2024 9:47 AM CLINICAL TRIALS NURSE Oxygen Saturation 95% 03/08/2024 9:47 AM CLINICAL TRIALS NURSE Inhaled Oxygen Concentration - - Weight 75.9 kg (167 lb 6.4 oz) 03/08/2024 9:47 A M CLINICAL TRIALS NURSE Height 162.6 cm (5' 4 ) 08/15/2022 1:21 PM CDT Body Mass Index 28.73 08/15/2022 1:21 PM CDT Plan of Treatment Upcoming Encounters Date Type Department Care Team (Late st Contact Info) Description 07/05/2024 10:30 AM CDT Office Visit [facility] Oncology and Hematology - [place] [address] [facility] [address] [place] [address] Pola Marquez MD [address] [facility] [address] [place] [address] Health Maintenance Due Date Last Done Comments Traditional Medicare (ACO) A nnual Wellness Visit 1964 ZOSTER VACCINE (1 of 2) 12/06/1995 DTAP/TDAP/TD VACCINES (1 - Tdap) 10/30/2009 10/30/19 10 RSV VACCINE (60+ or ) (1 - 1-dose 75+ series) 2020 INFLUENZA VACCINE (#1) 2023 11/16/2016 PNEUMOCOCCAL VACCINE 50+ YEARS Completed 03/20/2015 , 12/13/2010 COLORECTAL SCREENING Discontinued 07/21/2016 Colorectal Cancer Screening Discontinued OSTEOPOROSIS SCREENING Completed 06/21/2022 FIT-DNA Q 3 years Discontinued FIT/FOBT Q 1 year Discontinued Flex Sig/CT Colonography Q 5 years Discontinued Procedures Procedure Name Priority Date/Time Associated Diagnosis Comments CANCER ANTIGEN 15-3 Routine 03/01/2024 4 :00 PM CLINICAL TRIALS NURSE COMPREHENSIVE METABOLIC PANEL Routine 03/01/2024 12:51 PM CLINICAL TRIALS NURSE CBC WITH DIFFERENTIAL Routine 03/01/2024 12:13 PM CLINICAL TRIALS NURSE from Last 3 Months Results * CANCER ANTIGEN 15-3 (03/01/2024 4:00 PM CLINICAL TRIALS NURSE) Blood Pola Marquez MD CHEMISTRY ORDERABLES Final Resu lt * COMPREHENSIVE METABOLIC PANEL (03/01/2024 12:51 PM CLINICAL TRIALS NURSE) Blood Pola Marquez MD CHEMISTRY ORDERABLES Final Resu lt * CBC WITH DIFFERENTIAL (03/01/2024 12:13 PM CLINICAL TRIALS NURSE) Blood Pola Marquez MD HEMATOLOGY ORDERABLES Final Res ult from Last 3 Months Insurance MEDICARE PART A AND B [facility] SUPP MEDICARE PART A AND B [facility] SUPP Care Teams Croze Cutter Helper Relationship Specialty Start Date End Date Margarita Britton MD [address] [place] [address] PCP - General Family Practice 08/15/22
--- OUTSIDE RECORDS SUMMARY | 2024-04-15 09:30 | XMS_ITS | Clinical Summary ---
Author Organization [facility] Address [address], [facility] [address] [place] [address] Phone Care Team Providers Care Construction Recruiter Name Role Phone Sheng [place] MD Unavailable [phone] Provider, Not On File Primary Care Provider Unav ailable Allergies No known active allergies Medications doxazosin (CARDURA) 2 MG Tablet Active metFORMIN (GLUCOPHAGE) 500 MG Tablet 1,500 mg daily (with dinner). Active quinapril (ACCUPRIL) 40 MG Tablet Active Omeprazole ([facility] OMEPRAZOLE) 20 MG Tablet Delayed Response Act anay cholecalciferol (EQL VITAMIN D3) 1000 UNIT Tablet Act anay polyethylene glycol (MIRALAX) Powder Use entire 255g bottle with 64oz of clear liquid as directed for colonoscopy prep. 255 g 0 7 Active tamoxifen citrate 20 MG TabletIndication s:Carcinoma in situ of right breast, unspecified type Take 1 Tab by mouth daily. 90 Tab 3 9 Active simvastatin (ZOCOR) 20 MG Tablet TK 1 T PO D 9 Active metFORMIN (GLUCOPHAGE-XR) 500 MG TABLET SR 24 HR TK 3 TS PO Q EVENING WITH SUPPER 9 Active valACYclovir (VALTREX) 1 GM Tablet TK 2 TS PO Q 12 H X 1 DAY 9 Active OneTouch Delica Lancets 33G Misc USE ONCE D UTD 9 Active Glucose Blood (OneTouch Verio) Strip TEST BS QD 9 Active glipiZIDE (GLUCOTROL XL) 10 MG TABLET SR 24 HR Take 10 mg by mouth daily. 0 Active triamterene-hydr ochlorothiazide (DYAZIDE) 37.5-25 MG Capsule TAKE 1 CAPSULE BY MOUTH DAILY 1 Active Active Problems Problem Noted Date Diagnosed Date Elevated liver enzymes 03/28/2019 Breast cancer in situ 12/04/2014 Bilateral leg cramps 12/04/2014 Breast cancer in situ (DCIS,LCIS) Immunizations Immunization Administration Dates Next Due Influenza, high-dose, trivalent, PF 11/16/2016 Pneumococcal Vaccine - 13 Valent 03/20/2015 Pneumococcal Vaccine Adult - 23 Valent 1 Td Vaccine (preservative free) 10/29/2009 Family History Medical History Relation Name Comments Colon Cancer Father 30s Breast Cancer Maternal Aunt 50s Diabetes Other 1 Heart Disease Other 2 Hypertension Other 3 Relation Name Status Comments Father colon cancer Maternal Aunt Mother Alive Other 1 Other 2 Other 3 Social History Tobacco Use Types Packs/Day Years Used Date Smoking Tobacco: Never Smokeless Tobacco: Never Tobacco Cessation:Counseling Given: No Alcohol Use Standard Drinks/Week Comments Not Asked 0 (1 standard drink = 0.6 oz pur e alcohol) PHQ-2 Answer Date Recorded Total Score - Questions 1-9 1 03/09 Comments No Sex and Gender Information Value Date Recorded Sex Assigned at Not on file Legal Sex Female 11:31 PM CDT Gender Identity Not on file Sexual Orientation Not on file Last Filed Vital Signs Vital Sign Reading Time Taken Comments Blood Pressure 140/78 03/26/2020 10:34 AM PURIFICATION SUPERVISOR Pulse 104 03/26/2020 10:34 AM PURIFICATION SUPERVISOR Temperature 36.6 C (97.8 F) 03/26/2020 10:34 AM PURIFICATION SUPERVISOR Respiratory Rate 16 03/26/2020 10:34 AM PURIFICATION SUPERVISOR Oxygen Saturation 97% 03/26/2020 10:34 AM PURIFICATION SUPERVISOR Inhaled Oxygen Concentration - - Weight 77.7 kg (171 lb 3.2 oz) 03/26/2020 10:34 AM PURIFICATION SUPERVISOR Height 162.6 cm (5' 4 ) 03/26/2020 10:34 AM PURIFICATION SUPERVISOR Body Mass Index 29.39 03/26/2020 10:34 AM PURIFICATION SUPERVISOR Plan of Treatment Health Maintenance Due Date Last Done Comments DEXA Bone Density 1945 Hepatitis C Virus (HCV) Screening 1945 Mammogram 04/05/2020 04/05/2019, 020 06/2017, 10/13/2015, Additional history exists Respiratory Syncytial Virus (RSV) Immunization (Adult) (1 - 1-dose 75+ series) 2020 Influenza Immunization (#1) 2023 11/02/2019, 1 SARS-COV-2 Immunization ( season) 2023 01/14/2021, 05/02/2020, 04/02/2020 Pneumococcal Immunization (50+ years) Completed 03/20/2015, 12/13/2010 Pneumococcal Immunization Combined Discontinued 03/20/2015, 12/13/2010 Colonoscopy High Risk Discontinued 07/21/2016 Colonoscopy Discontinued 07/21/2016 Colorectal Cancer Screening Discontinued DTaP/Tdap/Td Immunization Discontinued 01/07/2020, TdaP Immunization Completed 01/07/2020 Zoster Immunization Completed 01/26/2020, 0 Cologuard Discontinued Hepatitis B Immunization Aged Out No longer eligible based on patient's age to complete this topic Immunochemical Fecal Occult Blood Discontinued Meningococcal Immunization (ACWY) Aged Out No longer eligible based on patient's age to complete this topic Rotavirus Immunization Aged Out No lo nger eligible based on patient's age to complete this topic Procedures Procedure Name Priority Date/Time Associated Diagnosis Comments YESSY SCREENING BILATERAL DIGI NARCISA W CAD W HUMAIRA Routine 04/05/2019 HM COLONOSCOPY Routine 07/21/2016 from Last 3 Months or Most Recently Relevant to Health Maintenance Results * YESSY SCREENING BILATERAL DIGITAL W CAD W HUMAIRA (04/05/2019) Anatomical Region Laterality Modality breast Bilateral Mammography us Not On File Provider IMG MAMMO ORDERABLES Final Result * HM COLONOSCOPY (07/21/2016) us Brennan Kendrick MD PROCEDURE/MINOR SURGICAL ORDE [place] Final Result from Last 3 Months or Most Recently Relevant to Health Maintenance Insurance [facility] MEDICARE MEDICARE [facility] Care Teams Construction Recruiter Relationship Specialty Start Date End Date Provider, Not On File [place] PCP - General 03/26/20 Sheng [place] MD Consulting Physician Oncology 03/31/17
--- OUTSIDE RECORDS SUMMARY | 2024-04-15 09:30 | XMS_ITS | Clinical Summary ---
Author Organization [facility] Address [address] [place] [address] Care Team Providers Care Plumbing Manager Name Role Phone Brennan Kendrick MD Primary Care Provider [phone] [facility],non-owned Affiliates and Associated Physician Practices is amultiple site organization consisting of ambulatory clinics and hospital sitesin [place], [place], [place] and [place]. This disclosure is being madepursuant to the Care Everywhere program and may not contain all information available regarding this patient. Last updated 17.[facility] Social History Tobacco Use Types Packs/Day Years Used Date Smoking Tobacco: Never Assessed Sex and Gender Information Value Date Recorded Sex Assigned at Not on file Gender Identity Not on file Sexual Orientation Not on file Plan of Treatment Health Maintenance Due Date Last Done Comments BONE DENSITY TESTING 1945 MEDICARE AWV 12 MONTHS 1945 HEPATITIS C SCREENING 12/01/1963 DTAP/TDAP/TD VACCINES (1 - Tdap) 1964 PNEUMOCOCCAL VACCINE 50+ (1 of 1 - PCV) 12/06/1995 ZOSTER VACCINE (1 of 2) 12/06/1995 Respiratory Syncytial Virus (RSV) Vaccine Pt: or over 60 yrs (1 - 1-dose 75+ series) 2020 COVID-19 VACCINE ( - 2023-2 5 season) 2023 INFLUENZA VACCINE (#1) 2023 DEPRESSION SCREENING 02/07/2024 HEPATITIS B VACCINE Aged Out No longe r eligible based on patient's age to complete this topic HIB VACCINE Aged Out No longer eligi ble based on patient's age to complete this topic HPV VACCINE Aged Out No longer eligi ble based on patient's age to complete this topic MENINGOCOCCAL (Group B) VACCINE Aged Out No longer eligible based on patient's age to complete this topic MENINGOCOCCAL VACCINE Aged Out No sukumar irma eligible based on patient's age to complete this topic Care Teams Plumbing Manager Relationship Specialty Start Date End Date Brennan Kendrick MD [address] [place], [place] [id number] PCP - General 04/01/14
--- OUTSIDE RECORDS SUMMARY | 2024-04-15 09:30 | XMS_ITS | Referral Summary ---
Author Organization [facility] Address [address] [facility] [place] [address] Care Team Providers Care Butadiene Converter Operator Name Role Phone Brennan Kendrick MD Primary Care Provider [phone] Source Comments [facility],non-owned Affiliates and Associated Physician Practices is amultiple site organization consisting of ambulatory clinics and hospital sitesin [place], [place], [place] and [place]. This disclosure is being madepursuant to the Care Everywhere program and may not contain all information available regarding this patient. Last updated 17.[facility] Social History Tobacco Use Types Packs/Day Years Used Date Smoking Tobacco: Never Assessed Sex and Gender Information Value Date Recorded Sex Assigned at Not on file Gender Identity Not on file Sexual Orientation Not on file Plan of Treatment Not on file Care Teams Butadiene Converter Operator Relationship Specialty Start Date End Date Brennan Kendrick MD [address] [place] [address] PCP - General 04/01/14
[2024-04-15 14:38] LABS: Creatinine Urine 69.5 mg/dL; MALB Creatinine Ratio 9.4 mg/g (0-30); Microalbumin Urine Random 6.5 mg/L (0-16.7)
[2024-04-15 14:43] LABS: Alanine Aminotransferase 21 U/L (6-35); Albumin Level 4.3 g/dL (3.5-5.1); Alkaline Phosphatase 73 U/L (38-126); Anion Gap 9 mmol/L (4-12); Aspartate Amino Transferase 41 U/L (14-36); Bilirubin,Total 0.7 mg/dL (0.2-1.3); Blood Urea Nitrogen 17 mg/dL (7-17); Calcium 9.5 mg/dL (8.4-10.2); Carbon Dioxide 27 mmol/L (22-30); Chloride 103 mmol/L (98-107); Cholesterol 134 mg/dL (0-200); Estimated Glomerular Filt Rate 41; Glucose 118 mg/dL (65-110); HDL Direct 40 mg/dL; Potassium 4.5 mmol/L (3.4-5.0); Sodium 139 mmol/L (137-145); Triglycerides 180 mg/dL (<150)
[2024-04-15 14:54] LABS: LDL Cholesterol Direct 55 mg/dL
[2024-04-15 15:09] LABS: Hemoglobin A1C 6.6 % (<5.7)
== END 2024-04-15 08:48 | disposition home or self-care (01) ==
PROVIDERS: PCP Family Medicine; Visit Provider Family Medicine
DX: E11.9 Type 2 diabetes mellitus without complications (principal); Z00.00 Encounter for general adult medical examination without abnormal findings; E78.2 Mixed hyperlipidemia
CPT/HCPCS: 36415; 80053; 80061; 82043; 83036

== ENCOUNTER 2024-05-30 14:30 | Outpatient (CLI) | payer MEDICARE, SELFPAY ==
--- NOTE | ~2024-05-30 | MM_ITS ---
EXAMINATION: MM screening vanessa BI w krystle HISTORY: Screening. History of right breast cancer. TECHNIQUE: Craniocaudal and mediolateral oblique 3-D tomosynthesis images were obtained and synthetic 2-D images were generated. CAD analysis was submitted and interpreted. COMPARISON: Comparison to multiple prior studies sequentially, with oldest reviewed study dated 04/2020. BREAST PARENCHYMAL COMPOSITION: Not dense: There are scattered areas of fibroglandular density. FINDINGS: Stable postoperative changes of the right breast involving the upper outer quadrant, lens gauger ior third. Persistent circumscribed mass at this location, compatible with seroma. There are benign b ilateral breast calcifications. There is no evidence of suspicious mass, calcification, or architectu ral distortion to suggest malignancy in either breast. There has been no suspicious interval change. IMPRESSION: 1. No mammographic evidence of malignancy. 2. Recommend routine screening mammography in one year. BI-RADS Category 2: Benign finding(s). Reviewed, dictated and finalized at location A.
--- OUTSIDE RECORDS SUMMARY | 2024-05-30 15:45 | XMS_ITS | Clinical Summary ---
Author Organization [facility] Address [address] [place] [address] Care Team Providers Care Interactive Account Manager Name Role Phone Margarita Britton MD Primary Care Provider [phone] Social History Tobacco Use Types Packs/Day Years [...] - 1-dose 75+ series) 2020 COVID-19 Vaccine ( - 2023-2 5 season) 2023 Pneumococcal Vaccine: 50+ Years Completed 03/20/2015, 12/13/2010 Meningococcal B Vaccine Aged Out No l onger eligible based on patient's age to complete this topic Meningococcal Vaccine Aged Out No sukumar irma eligible based on patient's age to complete this topic RSV Immunizations Under 20 Months Aged Out No longer eligible b ased on patient's age to complete this topic Insurance MEDICARE [facility] Care Teams Interactive Account Manager Relationship Specialty Start Date End Date Margarita Britton MD [address] [place], [place] [id number] PCP - General FAMILY PRACTICE 10/20/20
--- OUTSIDE RECORDS SUMMARY | 2024-05-30 15:45 | XMS_ITS | Clinical Summary ---
Author Organization [facility] Address [address], [facility] [address] [place] [address] Phone Care Team Providers Care Nurse Discharge Planner Name Role Phone Sheng [place] MD Unavailable [phone] Provider, Not On File Primary Care Provider [...] Comments Blood Pressure 140/78 03/26/2020 10:34 AM CHAPERON Pulse 104 03/26/2020 10:34 AM CHAPERON Temperature 36.6 C (97.8 F) 03/26/2020 10:34 AM CHAPERON Respiratory Rate 16 03/26/2020 10:34 AM CHAPERON Oxygen Saturation 97% 03/26/2020 10:34 AM CHAPERON Inhaled Oxygen Concentration - - Weight 77.7 kg (171 lb 3.2 oz) 03/26/2020 10:34 AM CHAPERON Height 162.6 cm (5' 4 ) 03/26/2020 10:34 AM CHAPERON Body Mass Index 29.39 03/26/2020 10:34 AM CHAPERON Plan of Treatment Health Maintenance Due Date Last Done Comments Hepatitis C Virus (HCV) Screening 1945 Mammogram 04/05/2020 04/05/2019, 02/0 06/2017, 10/13/2015, Additional history exists Respiratory Syncytial [...] us Brennan Kendrick MD PROCEDURE/MINOR SURGICAL ORDE RABCÉSAR Final Result from Last 3 Months or Most Recently Relevant to Health Maintenance Insurance [facility] MEDICARE MEDICARE [facility] Care Teams Nurse Discharge Planner Relationship Specialty Start Date End Date Provider, Not On File [place] PCP - General 03/26/20 Sheng [place] MD Consulting Physician Oncology 03/31/17
--- OUTSIDE RECORDS SUMMARY | 2024-05-30 15:45 | XMS_ITS | Continuity of Care Document ---
Author Organization [facility] Address [address] [place] [address] [address] [place] [address] Phone Care Team Providers Care Heel Attacher Name Role Phone Chavira OD, Sheng Unavailable Unavailable Advance Directives Directive Yes / No Effective Date File Name No Information Encounters Encounter Description Practice Location Reason(s) For Visit Diagnoses Date Provider Providers Copied on Encounter [facility], [address], [place], [place], [id number], [place] tel:[phone] [facility] No Information 2-[address] 6 Chavira OD Sheng. [address] , [address], [place], [address], [place]. tel:[phone] Family History Family Member Type Diagnosis Age At Onset No Information Payers Payer name Insurance type Covered republican ID Authoriza tion(s) No Information Social History [...]
--- OUTSIDE RECORDS SUMMARY | 2024-05-30 15:45 | XMS_ITS | Clinical Summary ---
Author Organization [facility] Address [address] [facility] [place] [address] Care Team Providers Care Dental Scheduler Name Role Phone Brennan Kendrick MD Primary Care Provider [phone] Source Comments [facility],non-owned Affiliates and Associated Physician Practices is amultiple site organization consisting of ambulatory clinics and hospital sitesin [place], [place], [place] and [place]. This disclosure is being madepursuant to the Care Everywhere program and may not contain all information available regarding this patient. Last updated 17.[facility] Social History Tobacco Use Types Packs/Day Years Used Date Smoking Tobacco: Never Assessed Comments Unknown Sex and Gender Information Value Date Recorded Sex Assigned at Not on file Legal Sex Female 6:21 PM LAST SAWYER Gender Identity Not on file Sexual Orientation [...] VACCINE ( - 2023-2 5 season) 2023 DEPRESSION SCREENING 02/07/2024 INFLUENZA VACCINE (Season Ended) 2024 HEPATITIS B VACCINE Aged Out No longe r eligible based on patient's age to complete this topic HIB VACCINE Aged Out No longer eligi ble based on patient's age to complete this topic HPV VACCINE Aged Out No longer eligi ble based on patient's age to complete this topic MENINGOCOCCAL (Group B) VACC INE SHARED DECISION-MAKING Aged Out No longer eligibl e based on patient's age to complete this topic MENINGOCOCCAL GROUPS A/C/Y/W VACCINE Aged Out No longer eligible b ased on patient's age to complete this topic Insurance MEDICARE Care Teams Dental Scheduler Relationship Specialty Start Date End Date Brennan Kendrick MD [address] [place] [address] PCP - General 04/01/14
--- OUTSIDE RECORDS SUMMARY | 2024-05-30 15:45 | XMS_ITS | Clinical Summary ---
Author Organization [facility] Address [address] [place] [address] Care Team Providers Care Job Coach/Job Developer Name Role Phone Margarita Britton MD Primary Care Provider [phone] Allergies No known active allergies Medications valACYclovir [...] STL ABSTRACTION Provider, Abstract 03/11/2024 Orders Only [facility] [address] [place] [address] Pola Marquez MD 03/08/2024 10:00 AM WINDOW TINTER Office Visit [facility] and [facility] [address] [place] [address] Pola Marquez MD Malignant neoplasm of upper-outer quadrant of right breast in female, estrogen receptor positive (CMS/HCC) (Primary Dx) 03/06/2024 External Device Data STL ABSTRACTION Provider, Abstract 03/04/2024 Orders Only [facility] [address] [place] [address] Pola Marquez MD from Last 3 Months Family History Relation [...] on file Legal Sex Female 9:40 AM WINDOW TINTER Gender Identity Not on file Sexual Orientation Not on file Last Filed Vital Signs Vital Sign Reading Time Taken Comments Blood Pressure 135/77 03/08/2024 9:47 AM WINDOW TINTER Pulse 83 03/08/2024 9:47 AM WINDOW TINTER Temperature 36.7 C (98.1 F) 03/08/2024 9:47 AM WINDOW TINTER Respiratory Rate 16 03/08/2024 9:47 AM WINDOW TINTER Oxygen Saturation 95% 03/08/2024 9:47 AM WINDOW TINTER Inhaled Oxygen Concentration - - Weight 75.9 kg (167 lb 6.4 oz) 03/08/2024 9:47 A M WINDOW TINTER Height 162.6 cm (5' 4 ) 08/15/2022 1:21 PM CDT Body Mass Index 28.73 08/15/2022 1:21 PM CDT Plan of Treatment Upcoming Encounters Date Type Department Care Team (Late st Contact Info) Description 07/05/2024 10:30 AM CDT Office Visit [facility] and H[facility] - [place] [address] [facility] [address] [place] [address] Pola Marquez MD [address] [facility] [address] [place] [address] Health Maintenance Due Date Last Done Comments ZOSTER VACCINE (1 of 2) 12/06/1995 DTAP/TDAP/TD VACCINES (1 - Tdap) 10/30/2009 10/30/19 10 RSV VACCINE (60+ or ) (1 - 1-dose 75+ series) 2020 INFLUENZA VACCINE (#1) 2023 11/16/2016 OSTEOPOROSIS SCREENING 06/22/2027 06/21/2022 PNEUMOCOCCAL VACCINE 50+ YEARS Completed 03/20/2015 , 12/13/2010 COLORECTAL SCREENING Discontinued 07/21/2016 Colorectal Cancer Screening Discontinued FIT-DNA Q 3 years Discontinued FIT/FOBT Q 1 year Discontinued Flex Sig/CT Colonography Q 5 years Discontinued Procedures Procedure Name Priority Date/Time Associated Diagnosis Comments CANCER ANTIGEN 15-3 Routine 03/01/2024 4 :00 PM WINDOW TINTER COMPREHENSIVE METABOLIC PANEL Routine 03/01/2024 12:51 PM WINDOW TINTER CBC WITH DIFFERENTIAL Routine 03/01/2024 12:13 PM WINDOW TINTER from Last 3 Months Results * CANCER ANTIGEN 15-3 (03/01/2024 4:00 PM WINDOW TINTER) Blood us Pola Marquez MD CHEMISTRY ORDERABLES Final Resu lt * COMPREHENSIVE METABOLIC PANEL (03/01/2024 12:51 PM WINDOW TINTER) Blood us Pola Marquez MD CHEMISTRY ORDERABLES Final Resu lt * CBC WITH DIFFERENTIAL (03/01/2024 12:13 PM WINDOW TINTER) Blood Pola Marquez MD HEMATOLOGY ORDERABLES Final Res ult from Last 3 Months Insurance MEDICARE PART A AND B [employer] SUPP MEDICARE PART A AND B [employer] SUPP Care Teams Job Coach/Job Developer Relationship Specialty Start Date End Date Margarita Britton MD [address] [place] [id number] PCP - General Family Practice 08/15/22
== END 2024-05-30 14:31 | disposition home or self-care (01) ==
PROVIDERS: PCP Family Medicine; Visit Provider Surgery
DX: Z12.31 Encounter for screening mammogram for malignant neoplasm of breast (principal); C50.911 Malignant neoplasm of unspecified site of right female breast; N64.89 Other specified disorders of breast; Z98.890 Other specified postprocedural states
CPT/HCPCS: 77063; 77067

== ENCOUNTER 2024-06-28 08:13 | Outpatient (CLI) | payer MEDICARE, SELFPAY ==
--- OUTSIDE RECORDS SUMMARY | 2024-06-28 08:20 | XMS_ITS | Clinical Summary ---
Author Organization [facility] Address [address], [facility] [address] [place] [address] Phone Care Team Providers Care Processor Grain Name Role Phone Sheng Kelley MD Unavailable [phone] Provider, Not On File Primary Care Provider [...] Comments Blood Pressure 140/78 03/26/2020 10:34 AM DENTIST/OWNER Pulse 104 03/26/2020 10:34 AM DENTIST/OWNER Temperature 36.6 C (97.8 F) 03/26/2020 10:34 AM DENTIST/OWNER Respiratory Rate 16 03/26/2020 10:34 AM DENTIST/OWNER Oxygen Saturation 97% 03/26/2020 10:34 AM DENTIST/OWNER Inhaled Oxygen Concentration - - Weight 77.7 kg (171 lb 3.2 oz) 03/26/2020 10:34 AM DENTIST/OWNER Height 162.6 cm (5' 4 ) 03/26/2020 10:34 AM DENTIST/OWNER Body Mass Index 29.39 03/26/2020 10:34 AM DENTIST/OWNER Plan of Treatment Health Maintenance Due Date [...] Most Recently Relevant to Health Maintenance Insurance [facility] MEDICARE MEDICARE [facility] Care Teams Processor Grain Relationship Specialty Start Date End Date Provider, Not On File [place] PCP - General 03/26/20 Sheng Kelley MD Consulting Physician Oncology 03/31/17
--- OUTSIDE RECORDS SUMMARY | 2024-06-28 08:20 | XMS_ITS | Encounter Summary ---
Author Organization [facility] Address [address] [place] [address] Care Team Providers Care Sander Hand Name Role Phone Margarita Britton MD Primary Care Provider [phone] Encounter Details Date Type Department Care Team (Late st Contact Info) Description 06/26/2024 External Device Data STL ABSTRACTION Provider, Abstract NO ADDRESS ON FILE Social History Tobacco Use Types Packs/Day Years Used Date Smoking Tobacco: Never Alcohol Use Standard Drinks/Week Comments No 0 (1 standard drink = 0.6 oz pur e alcohol) Comments No Sex and Gender Information Value Date Recorded Sex Assigned at Not on file Legal Sex Female 9:40 AM CHIPPER FEEDER Gender Identity Not on file Sexual Orientation Not on file documented as of this encounter Plan of Treatment Upcoming Encounters Date Type Department Care Team (Late st Contact Info) Description 07/05/2024 10:30 AM CDT Office Visit [facility] Oncology and Hematology - [place] [address] [place] [address] [address] Pola Marquez MD [address] [place] [address] documented as of this encounter Visit Diagnoses Not on filedocumented in this encounter Care Teams Sander Hand Relationship Specialty Start Date End Date Margarita Britton MD [address] [place] [address] PCP - General Family Practice 08/15/22 documented as of this encounter
--- OUTSIDE RECORDS SUMMARY | 2024-06-28 08:20 | XMS_ITS | Continuity of Care Document ---
Author Organization [facility] Address [id number] [place] [address] [address] [place] [address] Phone Care Team Providers Care Nurses Director Name Role Phone Chavira OD, Sheng Unavailable Unavailable Advance Directives Directive Yes / No Effective Date File Name No Information Encounters Encounter Description Practice Location Reason(s) For Visit Diagnoses Date Provider Providers Copied on Encounter [facility], [address], [place], [place], [id number], [place] tel:[phone] [facility] No Information 2-200 6 Chavira OD Sheng. [address] , [address], [place], [address], [place]. tel:[phone] Family History Family Member Type Diagnosis Age [...]
--- OUTSIDE RECORDS SUMMARY | 2024-06-28 08:20 | XMS_ITS | Clinical Summary ---
Author Organization [facility] Address [address] [place] [address] Care Team Providers Care Medical Imaging Technologist Name Role Phone Margarita Britton MD Primary Care Provider [phone] Allergies No known active allergies Medications valACYclovir [...] Encounters Date Type Department Care Team Description 06/26/2024 External Device Data STL ABSTRACTION [...] on file Legal Sex Female 9:40 AM MUSHROOM LABORER Gender Identity Not on file Sexual Orientation Not on file Last Filed Vital Signs Vital Sign Reading Time Taken Comments Blood Pressure 135/77 03/08/2024 9:47 AM MUSHROOM LABORER Pulse 83 03/08/2024 9:47 AM MUSHROOM LABORER Temperature 36.7 C (98.1 F) 03/08/2024 9:47 AM MUSHROOM LABORER Respiratory Rate 16 03/08/2024 9:47 AM MUSHROOM LABORER Oxygen Saturation 95% 03/08/2024 9:47 AM MUSHROOM LABORER Inhaled Oxygen Concentration - - Weight 75.9 kg (167 lb 6.4 oz) 03/08/2024 9:47 A M MUSHROOM LABORER Height 162.6 cm (5' 4 ) 08/15/2022 1:21 PM CDT Body Mass Index 28.73 08/15/2022 1:21 PM CDT Plan of Treatment Upcoming Encounters Date Type Department Care Team (Late st Contact Info) Description 07/05/2024 10:30 AM CDT Office Visit [facility] Oncology and Hematology - [place] [address] [facility] [address] [place] [address] Pola Marquez MD [address] [facility] [address] [place] [address] Health Maintenance Due Date Last Done Comments Traditional Medicare (ACO) A nnual Wellness Visit 1964 ZOSTER VACCINE (1 of 2) 12/06/1995 DTAP/TDAP/TD VACCINES (1 - Tdap) 10/30/2009 09/23/20 10 RSV VACCINE (60+ or ) (1 - 1-dose 75+ series) 2020 INFLUENZA VACCINE (#1) 2023 11/16/2016 OSTEOPOROSIS SCREENING 06/22/2027 06/21/2022 PNEUMOCOCCAL VACCINE 50+ YEARS Completed 03/20/2015 , 12/13/2010 COLORECTAL SCREENING Discontinued 07/21/2016 Colorectal Cancer Screening Discontinued FIT-DNA Q 3 years Discontinued FIT/FOBT Q 1 year Discontinued Flex Sig/CT Colonography Q 5 years Discontinued Insurance MEDICARE PART A AND B [employer] SUPP MEDICARE PART A AND B [facility] SUPP Care Teams Medical Imaging Technologist Relationship Specialty Start Date End Date Margarita Britton MD [address] [place] [address] PCP - General Family Practice 08/15/22
--- OUTSIDE RECORDS SUMMARY | 2024-06-28 08:20 | XMS_ITS | Clinical Summary ---
Author Organization [facility] Address [address] [place] [address] Care Team Providers Care Test Boring Crew Chief Name Role Phone Brennan Kendrick MD Primary Care Provider [phone] [facility] [employer],non-owned Affiliates and Associated Physician Practices is amultiple site organization consisting of ambulatory clinics and hospital sitesin [place], [place], [place] and [place]. This disclosure is being madepursuant to the Care Everywhere program and may not contain all information available regarding this patient. Last updated 17.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
[2024-06-28 08:32] LABS: Basophils Absolute Auto 0.1 K/mm3 (0.0-0.1); Basophils Percent Auto 0.7 % (0.2-1.2); Eosinophils Absolute Auto 0.1 K/mm3 (0-0.3); Hematocrit 39.7 % (37.0-47.0); Hemoglobin 12.9 g/dL (12.0-15.0); Immature Granulocyte Absolute 0.01 K/mm3 (0.00-0.031); Immature Granulocyte Percent A 0.1 % (0-0.5); Lymphocytes Absolute Auto 2.03 K/mm3 (0.9-3.2); Lymphocytes Percent Auto 28.7 % (18.3-44.2); Mean Corpuscular HGB Conc 32.5 g/dl (32-36); Mean Corpuscular Hemoglobin 28.5 pg (26-34); Mean Corpuscular Volume 87.8 fl (80-100); Monocytes Absolute Auto 0.4 K/mm3 (0.1-0.6); Monocytes Percent Auto 6.2 % (2.6-8.5); Neutrophils Absolute Auto 4.4 K/mm3 (1.3-6.7); Neutrophils Percent Auto 62.3 % (45.5-73.1); Platelet Count Result 207 k/mm3 (150-375); Red Blood Count 4.52 M/mm3 (4.2-5.4); Red Cell Distribution Width 13.3 % (11.5-14.5); White Blood Count 7.1 K/mm3 (4.5-10.0)
[2024-06-28 11:56] LABS: Alanine Aminotransferase 23 U/L (6-35); Albumin Level 4.2 g/dL (3.5-5.1); Alkaline Phosphatase 65 U/L (38-126); Anion Gap 9 mmol/L (4-12); Aspartate Amino Transferase 37 U/L (14-36); Bilirubin,Total 0.5 mg/dL (0.2-1.3); Blood Urea Nitrogen 16 mg/dL (7-17); Carbon Dioxide 26 mmol/L (22-30); Chloride 105 mmol/L (98-107); Estimated Glomerular Filt Rate 51; Glucose 163 mg/dL (65-110); Sodium 140 mmol/L (137-145)
[2024-06-30 04:12] LABS: CA 15-3 5 U/mL (<32)
== END 2024-06-28 08:14 | disposition home or self-care (01) ==
LOC: ANHLAB 08:18
PROVIDERS: PCP Family Medicine; Visit Provider Internal Medicine Hematology & Oncology
DX: C50.411 Malignant neoplasm of upper-outer quadrant of right female breast (principal); Z17.0 Estrogen receptor positive status [ER+]
CPT/HCPCS: 36415; 80053; 85025; 86300

== ENCOUNTER 2024-10-18 08:34 | Outpatient (CLI) | payer MEDICARE, SELFPAY ==
--- OUTSIDE RECORDS SUMMARY | 2005-11-17 12:15 | XMS_ITS | Continuity of Care Document ---
Author Organization [facility] Address [id number] [place] [address] [address] [place] [address] Phone Care Team Providers Care Healthcare Consulting Manager Name Role Phone Chavira OD, Sheng Unavailable Unavailable Advance Directives Directive Yes / No Effective Date File Name No Information Encounters Encounter Description Practice Location Reason(s) For Visit Diagnoses Date Provider Providers Copied on Encounter [facility], [address], [place], [place], [id number], [place] tel:[phone] [facility] No Information 2-200 6 Chavira OD Sheng. [address] , [address], [place], [address], [place]. tel:[phone] Family History Family Member Type Diagnosis Age At Onset No Information Payers Payer name Insurance type Covered green party ID Authoriza tion(s) No Information Social History [...]
--- OUTSIDE RECORDS SUMMARY | 2024-10-18 08:46 | XMS_ITS | Clinical Summary ---
Author Organization [facility] Address [address], [facility] [address] [place] [address] Phone Care Team Providers Care Head Of Sales Promotion Name Role Phone Sheng Kelley MD Unavailable [phone] Provider, Not On File Primary Care [...] Comments Blood Pressure 140/78 03/26/2020 10:34 AM DYNAMITE PACKING MACHINE FEEDER Pulse 104 03/26/2020 10:34 AM DYNAMITE PACKING MACHINE FEEDER Temperature 36.6 C (97.8 F) 03/26/2020 10:34 AM DYNAMITE PACKING MACHINE FEEDER Respiratory Rate 16 03/26/2020 10:34 AM DYNAMITE PACKING MACHINE FEEDER Oxygen Saturation 97% 03/26/2020 10:34 AM DYNAMITE PACKING MACHINE FEEDER Inhaled Oxygen Concentration - - Weight 77.7 kg (171 lb 3.2 oz) 03/26/2020 10:34 AM DYNAMITE PACKING MACHINE FEEDER Height 162.6 cm (5' 4) 03/26/2020 10:34 AM DYNAMITE PACKING MACHINE FEEDER Body Mass Index 29.39 03/26/2020 10:34 AM DYNAMITE PACKING MACHINE FEEDER Plan of Treatment Health Maintenance Due Date Last Done Comments Hepatitis C Virus (HCV) Screening 1945 Mammogram 04/05/2020 04/05/2019, 02/0 06/2017, 10/13/2015, Additional history exists Respiratory Syncytial Virus (RSV) Immunization (Adult) (1 - 1-dose 75+ series) 2020 Influenza Immunization (#1) 2024 11/02/2019, 1 SARS-COV-2 Immunization ( season) 2024 01/14/2021, 05/02/2020, 04/02/2020 Pneumococcal Immunization (50+ years) Completed 03/20/2015, 12/13/2010 Pneumococcal Immunization Combined Discontinued 03/20/2015, 12/13/2010 Colonoscopy Discontinued 07/21/2016 Colorectal Cancer Screening Discontinued DTaP/Tdap/Td Immunization Discontinued 01/07/2020, TdaP Immunization Completed 01/07/2020 Zoster Immunization Completed 01/26/2020, 0 Cologuard Discontinued Hepatitis B Immunization Aged Out No longer eligible based on patient's age to complete this topic Human Papillomavirus (HPV) Immunization Aged Out No longer eligible based [...] us Brennan Kendrick MD PROCEDURE/MINOR SURGICAL ORDE RABLES Final Result from Last 3 Months or Most Recently Relevant to Health Maintenance Insurance [facility] MEDICARE MEDICARE [facility] Care Teams Head Of Sales Promotion Relationship Specialty Start Date End Date Provider, Not On File [place] PCP - General 03/26/20 Sheng Kelley MD Consulting Physician Oncology 03/31/17
--- OUTSIDE RECORDS SUMMARY | 2024-10-18 08:46 | XMS_ITS | Clinical Summary ---
Author Organization [facility] Address [address] [place] [address] Care Team Providers Care Document Control Supervisor Name Role Phone Margarita Britton MD Primary Care Provider [phone] Allergies No known active allergies Medications valACYclovir (VALTREX) 1 gram tablet TK 2 TS PO Q 12 H X 1 DAY 1 03/29/2018 Active triamterene-hydr oCHLOROthiazide 50-25 mg capsule Act anya simvastatin (ZOCOR) 20 mg tablet TK 1 [...] Encounters Date Type Department Care Team Description 10/08/2024 External Device Data STL ABSTRACTION Provider, Abstract 09/25/2024 External Device Data STL ABSTRACTION Provider, Abstract 09/11/2024 External Device Data STL ABSTRACTION Provider, Abstract 08/22/2024 External Device Data STL ABSTRACTION Provider, Abstract 08/21/2024 External Device Data STL ABSTRACTION Provider, Abstract 08/21/2024 External Device Data STL ABSTRACTION Provider, Abstract 07/24/2024 External Device Data STL ABSTRACTION Provider, Abstract 07/24/2024 External Device Data STL ABSTRACTION Provider, Abstract [...] on file Legal Sex Female 9:40 AM SALES SPECIALIST Gender Identity Not on file Sexual Orientation Not on file Last Filed Vital Signs Vital Sign Reading Time Taken Comments Blood Pressure 113/72 07/05/2024 10:19 AM CDT Pulse 79 07/05/2024 10:19 AM CDT Temperature 36.7 C (98 F) 07/05/2024 10:19 AM CDT Respiratory Rate 15 07/05/2024 10:1 9 AM CDT Oxygen Saturation 97% 07/05/2024 10: 19 AM CDT Inhaled Oxygen Concentration - - Weight 75.2 kg (165 lb 12.8 oz) 025 10:19 AM CDT Height 162.6 cm (5' 4) 08/15/2022 1:21 PM CDT Body Mass Index 28.46 08/15/2022 1:21 PM CDT Plan of Treatment Upcoming Encounters Date Type Department Care Team (Late st Contact Info) Description 01/10/2025 10:30 AM SALES SPECIALIST Office Visit [facility] Oncology and Hematology - [place] [address] [place] [address] Pola Marquez MD [address] [facility] [address] [place] [address] Health Maintenance Due Date Last Done Comments ZOSTER VACCINE (1 of 2) 12/06/1995 DTAP/TDAP/TD VACCINES (1 - Tdap) 10/30/2009 10/30/19 10 RSV VACCINE (60+ or ) (1 - 1-dose 75+ series) 2020 INFLUENZA VACCINE (#1) 2024 11/16/2016 OSTEOPOROSIS SCREENING 06/22/2027 06/21/2022 PNEUMOCOCCAL VACCINE 50+ YEARS Completed 03/20/2015 , 12/13/2010 COLORECTAL SCREENING Discontinued 07/21/2016 Colorectal Cancer Screening Discontinued FIT-DNA Q 3 years Discontinued FIT/FOBT Q 1 year Discontinued Flex Sig/CT Colonography Q 5 years Discontinued Insurance MEDICARE PART A AND B [facility] MEDICARE PART A AND B [employer] SUPP Care Teams Document Control Supervisor Relationship Specialty Start Date End Date Margarita Britton MD [address] [place] [id number] PCP - General Family Practice 08/15/22
--- OUTSIDE RECORDS SUMMARY | 2024-10-18 08:46 | XMS_ITS | Clinical Summary ---
Author Organization [facility] Address [address] [facility] [place] [address] Care Team Providers Care Infusion Pharmacist Name Role Phone Brennan Kendrick MD Primary Care Provider [phone] Source Comments [facility] [employer],non-owned Affiliates and Associated Physician Practices is amultiple site organization consisting of ambulatory clinics and hospital sitesin [place], [place], [place] and [place]. This disclosure is being madepursuant to the Care Everywhere program and may not contain all information available regarding this patient. Last updated 17.[facility] [employer] Social History Tobacco Use Types Packs/Day Years Used Date Smoking Tobacco: Never Assessed Comments Unknown Sex and Gender Information Value Date Recorded Sex Assigned at Not on file Legal Sex Female 6:21 PM PRODUCT CONSULTANT Gender Identity Not on file Sexual Orientation [...] yrs (1 - 1-dose 75+ series) 2020 DEPRESSION SCREENING 02/07/2024 COVID-19 VACCINE ( - 2023-2 5 season) 2024 INFLUENZA VACCINE (#1) 2024 HEPATITIS B VACCINE Aged Out No [...] complete this topic Insurance MEDICARE Care Teams Infusion Pharmacist Relationship Specialty Start Date End Date Brennan Kendrick MD [address] [place] [address] PCP - General 04/01/14
[2024-10-18 18:11] LABS: Hematocrit 40.0 % (37.0-47.0); Hemoglobin 12.9 g/dL (12.0-15.0); Immature Granulocyte Percent A 0.1 % (0-0.5); Lymphocytes Absolute Auto 2.47 K/mm3 (0.9-3.2); Mean Corpuscular HGB Conc 32.3 g/dl (32-36); Mean Corpuscular Hemoglobin 29.2 pg (26-34); Mean Corpuscular Volume 90.5 fl (80-100); Nucleated Red Blood Cells Absolute Auto 0.000 K/mm3 (0.0-0.012); Nucleated Red Blood Cells Perc 0.0 % (0.0-0.2); Platelet Count Result 202 k/mm3 (150-375); Red Blood Count 4.42 M/mm3 (4.2-5.4); White Blood Count 7.4 K/mm3 (4.5-10.0)
[2024-10-18 19:11] LABS: Alanine Aminotransferase 19 U/L (6-35); Albumin Level 4.1 g/dL (3.5-5.1); Alkaline Phosphatase 70 U/L (38-126); Anion Gap 10 mmol/L (4-12); Aspartate Amino Transferase 30 U/L (14-36); Bilirubin,Total 0.7 mg/dL (0.2-1.3); Blood Urea Nitrogen 22 mg/dL (7-17); Calcium 9.2 mg/dL (8.4-10.2); Carbon Dioxide 24 mmol/L (22-30); Chloride 103 mmol/L (98-107); Cholesterol 133 mg/dL (0-200); Estimated Glomerular Filt Rate 48; Glucose 139 mg/dL (65-110); HDL Direct 40 mg/dL; Potassium 4.3 mmol/L (3.4-5.0); Sodium 137 mmol/L (137-145); Total Protein 7.1 g/dL (6.3-8.2); Triglycerides 133 mg/dL (<150)
[2024-10-18 19:26] LABS: Hemoglobin A1C 6.6 % (<5.7)
== END 2024-10-18 08:35 | disposition home or self-care (01) ==
PROVIDERS: PCP Family Medicine; Visit Provider Student in an Organized Health Care Education/Training Program
DX: E11.69 Type 2 diabetes mellitus with other specified complication (principal); E78.5 Hyperlipidemia, unspecified; E11.9 Type 2 diabetes mellitus without complications; E11.22 Type 2 diabetes mellitus with diabetic chronic kidney disease; N18.30 Chronic kidney disease, stage 3 unspecified; R53.83 Other fatigue
CPT/HCPCS: 36415; 80053; 80061; 83036; 85025

== ENCOUNTER 2024-11-07 09:21 | Outpatient (CLI) | payer MEDICARE, SELFPAY ==
--- NOTE | 2024-11-07 09:49 | ECHO_ITS ---
Patient Info Name: Veronica Caicedo Age: 78 years : 1945 Gender: Female Ht: 64 in Wt: 163 lbs BSA: 1.85 m2 HR: 79 bpm BP: 112 / 79 mmHg Technical Quality: Good Exam Date: 11/07/2024 10:04 AM Patient Status: O Admit Date: 11/07/2024 Exam Type: CA echo doppler color flow Complete two-dimensional, color flow and Doppler transthoracic echocardiogram is performed. Plywood Layup Line Core Feeder: Silva Ramirez Attending Provider: Skyla Boyd Summary 1. Complete two-dimensional, color flow and Doppler transthoracic echocardiogram is performed. 2. Left ventricular chamber dimension is normal. 3. Left ventricular systolic function is normal, estimated at 60-65. 4. The left ventricular diastolic function is grade I diastolic dysfunction. 5. E/e' 6 is not elevated. 6. There is mild aortic valve sclerosis. Left Ventricle E/e' 6 is not elevated. Left ventricular chamber dimension is normal. Left ventricular systolic function is normal, estimated at 60-65. The left ventricular diastolic function is grade I diastolic dysfunction. Right Ventricle Right ventricular chamber dimension is normal. Right ventricular systolic function is normal and with normal TAPSE 2.1 cm. Left Atria Left atrial chamber dimension is normal. Right Atria Right atrial chamber dimension is normal. Aortic Valve The aortic valve is trileaflet. There is mild aortic valve sclerosis. There is no aortic valve stenosis. There is no aortic valve regurgitation. Pulmonic Valve There is no pulmonic regurgitation. Mitral Valve There is no mitral valve stenosis. There is no mitral valve regurgitation. Tricuspid Valve There is no tricuspid valve regurgitation. Pericardium/Pleural There is no pericardial effusion. Inferior Vena Cava Normal inferior vena cava with >50% collapse upon inspiration consistent with normal right atrial pressure, 5 mmHg. Aorta The aortic root size at the sinus of Valsalva is normal. Left Ventricular Outflow Tract Name Value Normal LVOT 2D LVOT Diameter 2.0 cm LVOT Doppler LVOT Peak Velocity 100 cm/s LVOT Peak Gradient 4 mmHg LVOT Mean Gradient 2 mmHg LVOT VTI 21 cm LVOT Stroke Volume 66 ml LVOT CO 5.2 l/min LVOT CI 2.8 l/min/m2 Pulmonic Valve Name Value Normal RVOT Doppler RVOT Peak Velocity 84 cm/s RVOT Peak Gradient 3 mmHg PV Doppler PV Peak Velocity 97 cm/s PV Peak Gradient 4 mmHg Mitral Valve Name Value Normal MV Diastolic Function MV E Peak Velocity 45 cm/s MV A Peak Velocity 80 cm/s MV E/A 0.6 MV Decel Time (PW) 390 ms MV Annular TDI MV E/e' (Septal) 6.1 MV E/e' (Lateral) 8.0 MV E/e' (Average) 7.0 Tricuspid Valve Name Value Normal Estimated PAP/RSVP RA Pressure 5 mmHg <=5 Aortic Valve Name Value Normal AV Doppler AV Peak Velocity 128 cm/s AV Peak Gradient 7 mmHg AV Area (Cont Eq Paul) 2.5 cm2 AV DI (Paul) 0.78 AV Regurgitation 2D LVOT Area 3.2 cm2 Ventricles Name Value Normal LV Dimensions 2D/MM IVS Diastolic Thickness (2D) 0.8 cm 0.6-1.0 LVID Diastole (2D) 4.5 cm 3.8-5.2 LVIW Diastolic Thickness (2D) 0.9 cm 0.6-0.9 LVID Systole (2D) 2.8 cm 2.2-3.5 LVOT Diameter 2.0 cm LV Mass (2D Cubed) 123.13 g 67.00-162.00 LV Mass Index (2D Cubed) 67 g/m2 43-95 Relative Wall Thickness (2D) 0.38 <=0.42 LV Fractional Shortening/Ejection Fraction 2D/MM LV Fractional Shortening (2D) 39 % 27-45 LV EF (2D Teichholz) 69 % LV Diastolic Volume (4C MOD) 65 ml LV EF (4C MOD) 62 % LV Diastolic Volume (2C MOD) 86 ml LV EF (2C MOD) 68 % LV Diastolic Volume (BP MOD) 76 ml 46-106 LV Diastolic Volume Index (BP MOD) 41 ml/m2 29-61 LV Systolic Volume (BP MOD) 29 ml 14-42 LV Systolic Volume Index (BP MOD) 16 ml/m2 8-24 LV EF (BP MOD) 62 % 54-74 LV Diastolic Length (4C) 7.1 cm LV Systolic Length (4C) 6.2 cm LV Stroke Volume (4C MOD) 40 ml Atria Name Value Normal LA Dimensions LA Volume (4C A-L) 27 ml LA Volume (BP A-L) 27 ml RA Dimensions RA Area (4C) 9.1 cm2 <=18.0 Report Signatures
--- OUTSIDE RECORDS SUMMARY | 2024-11-07 09:49 | XMS_ITS | Clinical Summary ---
Author Organization [facility] Address [address] [place] [address] Care Team Providers Care Boat Mechanic Name Role Phone Margarita Britton MD Primary Care Provider [phone] Allergies No known active allergies Medications valACYclovir [...] on file Legal Sex Female 9:40 AM PRESIDENT + PUBLISHER Gender Identity Not on file Sexual Orientation [...] st Contact Info) Description 01/10/2025 10:30 AM PRESIDENT + PUBLISHER Office Visit [facility] Oncology and Hematology - [place] [address] [facility] [address] [place] [address] Pola Marquez MD [address] [facility] [address] [place] [address] Health Maintenance Due Date Last [...] Discontinued Insurance MEDICARE PART A AND B [facility] MEDICARE PART A AND B [employer] SUPP Care Teams Boat Mechanic Relationship Specialty Start Date End Date Margarita Britton MD [address] [place] [address] PCP - General Family Practice 08/15/22
--- OUTSIDE RECORDS SUMMARY | 2024-11-07 09:49 | XMS_ITS | Clinical Summary ---
Author Organization [facility] Address [address] [place] [address] Care Team Providers Care Warehouse Order Picker Name Role Phone Margarita Britton MD Primary Care Provider [phone] Social History Tobacco Use Types Packs/Day Years [...] COVID-19 Vaccine ( - 2023-2 5 season) 2024 Pneumococcal Vaccine: 50+ Years Completed 03/20/2015, 12/13/2010 Meningococcal B Vaccine Aged Out No l onger eligible based on patient's age to complete this topic Meningococcal Vaccine Aged Out No sukumar irma eligible based on patient's age to complete this topic RSV Immunizations Under 20 Months Aged Out No longer eligible b ased on patient's age to complete this topic Insurance MEDICARE [facility] Care Teams Warehouse Order Picker Relationship Specialty Start Date End Date Margarita Britton MD [address] [place], [place] [id number] PCP - General FAMILY PRACTICE 10/20/20
--- OUTSIDE RECORDS SUMMARY | 2024-11-07 09:49 | XMS_ITS | Clinical Summary ---
Author Organization [facility] Address [address] [facility] [place] [address] Care Team Providers Care Roll Line Operator Name Role Phone Brennan Kendrick MD Primary Care Provider [phone] Source Comments [facility] [employer],non-owned Affiliates and Associated Physician Practices is amultiple site organization consisting of ambulatory clinics and hospital sitesin [place], [place], [place] and [place]. This disclosure is being madepursuant to the Care Everywhere program and may not contain all information available regarding this patient. Last updated 17.[facility] [employer] Social History Tobacco Use Types Packs/Day Years Used Date Smoking Tobacco: Never Assessed Comments Unknown Sex and Gender Information Value Date Recorded Sex Assigned at Not on file Legal Sex Female 6:21 PM MACHINES TECHNICIAN Gender Identity Not on file Sexual Orientation [...] complete this topic Insurance MEDICARE Care Teams Roll Line Operator Relationship Specialty Start Date End Date Brennan Kendrick MD [address] [place] [address] PCP - General 04/01/14
== END 2024-11-07 09:22 | disposition home or self-care (01) ==
LOC: ANHCARD 09:22
PROVIDERS: PCP Family Medicine; Visit Provider Student in an Organized Health Care Education/Training Program
DX: R93.1 Abnormal findings on diagnostic imaging of heart and coronary circulation (principal); R01.1 Cardiac murmur, unspecified
CPT/HCPCS: 93306

== ENCOUNTER 2024-12-09 08:15 | Outpatient (CLI) | payer MEDICARE, SELFPAY ==
--- OUTSIDE RECORDS SUMMARY | 2005-11-17 11:15 | XMS_ITS | Continuity of Care Document ---
Author Organization [facility] Address [address] [place] [address] [address] [place] [address] Phone Care Team Providers Care Music Department Chair Name Role Phone Chavira OD, Sheng Unavailable Unavailable Advance Directives Directive Yes / No Effective Date File Name No Information Encounters Encounter Description Practice Location Reason(s) For Visit Diagnoses Date Provider Providers Copied on Encounter [facility], [address], [place], [place], [id number], [place] tel:[phone] [facility] No Information 2-200 6 Chavira OD Sheng. [address] , [address], [place], [address], [place]. tel:[phone] Family History Family Member Type Diagnosis Age At Onset No Information Payers Payer name Insurance type Covered libertarian ID Authoriza tion(s) No Information Social History Type Description Quantity Date Captured Comments Sex Female Smoking Status No Information Chief Complaint And Reason For Visit No Information Reason For Referral Reason For Referral No Information History Of Present Illness Encounter Date Complaint History Of Prese nt Illness No Information Functional Status Date Functional Assessmen t No Information Instructions Date Instruction Additional Infor mation No Information Assessments Type Assessment Date No Information Patient Care Teams Name Effective Dates (start - stop) Status Members No Information
--- NOTE | ~2024-12-09 | DEXA_ITS ---
Bone Density Report Name: JARRETT KENNEDY Age: 79 Sex: Female Ethnicity: White Date of : 1945 Indication: postmenopausal; screening for osteoporosis; cancer; hysterectomy; Referring Provider: NAEL RAI Study: Bone densitometry was performed. Exam Date: December 09, 2024 Accession number: [id number] Bone Density: Region BMD T-score Z-score Classification AP Spine(L1-L4) 1.226 1.6 4.3 Normal Femoral Neck (Left) 0.797 -0.5 1.8 Normal Total Hip (Left) 0.970 0.2 2.2 Normal Femoral Neck (Right) 0.744 -0.9 1.3 Normal Total Hip (Right) 0.897 -0.4 1.6 Normal Total Hip Mean 0.934 -0.1 1.9 Normal World Health Organization criteria for BMD impression classify patients as: Normal (T-score at or above -1.0), Osteopenia (T-score between -1.0 and -2.5), or Osteoporosis (T-score at or below -2.5). 10-year Fracture Risk: FRAX not reported because: All T-scores for Spine Total, Hip Total, Femoral Neck at or above -1.0 Previous Exams: Region Exam Age BMD T-score BMD Change BMD Change Date g/cm2 vs Baseline vs Previous AP Spine (L1-L4) 12/09/2024 79 1.226 1.6 0.009 (0.7%) 0.009 (0.7%) 06/21/2022 76 1.217 1.5 Total Hip(Left) 12/09/2024 79 0.970 0.2 -0.061 (-5.9%) -0.061 (-5.9%) 06/21/2022 76 1.031 0.7 Total Hip(Right) 12/09/2024 79 0.897 -0.4 -0.020 (-2.2%) -0.020 (-2.2%) 06/21/2022 76 0.917 -0.2 *Denotes significance at 95% confidence level, LSC for AP Spine = 0.022 g/cm2, LSC for Total Hip = 0.027 g/cm2 Clinical Information Provided by Patient: Has used the following medications: Vitamin D Has the following medical conditions: Cancer, Hysterectomy Patient maximum height was 64 Menopause Age: 50 No regular weight bearing exercise Drinks caffeinated beverages Onset of menses at age 14 Number of children 3 Impression: The patient has normal bone mass. The BMD for the Total Hip(Left) decreased, changing by -5.9% since the last DXA exam. Discussion: BONE DENSITY IS ABOVE THE MINIMUM DESIRABLE LEVEL AT ALL SKELETAL SITES TESTED. This patient?s bone mineral density is above the minimum desirable level (T-score -1.0 or better) at all sites measured. The patient should follow a healthful lifestyle (good nutrition with adequate calcium and vitamin D, and appropriate weight-bearing exercise). Follow-Up: Consider repeating this study in 3 to 4 years to reassess this patient's status, or sooner if there is some new clinical indication. Reported by: ROBERT on 12/09/2024 8:57:00 AM. Reviewed, dictated and finalized at location A.
--- OUTSIDE RECORDS SUMMARY | 2024-12-09 08:25 | XMS_ITS | Clinical Summary ---
Author Organization [facility] Address [address] [place] [address] Care Team Providers Care Boilermaker Ship Name Role Phone Margarita Britton MD Primary Care Provider [phone] Social History Tobacco Use Types Packs/Day Years [...] 75+ series) 2020 COVID-19 Vaccine ( - 2024-2 6 season) 2024 Influenza Adult (#1) 2024 11/16/2016 Pneumococcal Vaccine: 50+ Years Completed 03/20/2015, 12/13/2010 Hepatitis A Vaccines Aged Out No long er eligible based on patient's age to complete this topic Meningococcal B Vaccine Aged Out No l onger eligible based on patient's age to complete this topic Meningococcal Vaccine Aged Out No sukumar irma eligible based on patient's age to complete this topic RSV Immunizations Under 20 Months Aged Out No longer eligible b ased on patient's age to complete this topic Insurance MEDICARE [facility] Care Teams Boilermaker Ship Relationship Specialty Start Date End Date Margarita Britton MD [address] [place] [address] PCP - General FAMILY PRACTICE 10/20/20
--- OUTSIDE RECORDS SUMMARY | 2024-12-09 08:25 | XMS_ITS | Clinical Summary ---
Author Organization [facility] Address [address] [place] [address] Care Team Providers Care Nozzle Worker Name Role Phone Brennan Kendrick MD Primary Care Provider [phone] Source Comments [facility] [employer] [facility] [employer],non-owned Affiliates and Associated Physician Practices is amultiple site organization consisting of ambulatory clinics and hospital sitesin [place], [place], [place]. This disclosure is being madepursuant to the Care Everywhere program and may not contain all information available regarding this patient. 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
--- OUTSIDE RECORDS SUMMARY | 2024-12-09 08:25 | XMS_ITS | Clinical Summary ---
Author Organization [facility] Address [address], [facility] [address] [place] [address] Phone Care Team Providers Care Public Relations Representative Name Role Phone Sheng Kelley MD Unavailable [phone] Provider, Not On File Primary Care Provider [...] Comments Blood Pressure 140/78 03/26/2020 10:34 AM SECURITY CONTROL ASSESSOR Pulse 104 03/26/2020 10:34 AM SECURITY CONTROL ASSESSOR Temperature 36.6 C (97.8 F) 03/26/2020 10:34 AM SECURITY CONTROL ASSESSOR Respiratory Rate 16 03/26/2020 10:34 AM SECURITY CONTROL ASSESSOR Oxygen Saturation 97% 03/26/2020 10:34 AM SECURITY CONTROL ASSESSOR Inhaled Oxygen Concentration - - Weight 77.7 kg (171 lb 3.2 oz) 03/26/2020 10:34 AM SECURITY CONTROL ASSESSOR Height 162.6 cm (5' 4) 03/26/2020 10:34 AM SECURITY CONTROL ASSESSOR Body Mass Index 29.39 03/26/2020 10:34 AM SECURITY CONTROL ASSESSOR Plan of Treatment Health Maintenance Due Date Last Done Comments Hepatitis C Virus (HCV) Screening 1945 Medicare Initial AWV [id number] 11/07/2011 Mammogram 04/05/2020 04/05/2019, 06/2017, 10/13/2015, Additional history exists Respiratory Syncytial [...] Provider IMG MAMMO ORDERABLES Final Result * COLONOSCOPY (07/21/2016) us Brennan Kendrick MD PROCEDURE/MINOR SURGICAL ORDE RABLES Final Result from Last 3 Months or Most Recently Relevant to Health Maintenance Insurance [facility] MEDICARE Member Subscriber Plan / Payer (Ef fective 2010-Present) Name:Veronica Caicedo Member ID:[id number] Relation to Subscriber:Self Name:MariferVeronica Abigail Subscriber ID:[id number] Payer ID:[id number] Group ID:Not on file Type:Not on file Address: [place] [phone] MEDICARE [facility] Care Teams Public Relations Representative Relationship Specialty Start Date End Date Provider, Not On File [place] PCP - General 03/26/20 Sheng Kelley MD Consulting Physician Oncology 03/31/17
--- OUTSIDE RECORDS SUMMARY | 2024-12-09 08:25 | XMS_ITS | Clinical Summary ---
Author Organization [facility] Address [address] [place] [address] Care Team Providers Care Electrical Machine Builder Name Role Phone Margarita Britton MD Primary Care Provider [phone] Allergies No known active allergies Medications valACYclovir (VALTREX) 1 gram tablet TK 2 TS PO Q 12 H X 1 DAY 1 9 Active triamterene-hyd roCHLOROthiazid e 50-25 mg capsule Active simvastatin (ZOCOR) 20 mg tablet TK 1 T PO D 0 9 Active quinapril (ACCUPRIL) 40 mg tablet TK 1 T PO BID 3 9 Active omeprazole (PriLOSEC) 20 mg Tablet, Delayed Release (E.C.) Active metFORMIN (GLUCOPHAGE XR) 500 mg Extended Release 24 hour tablet Take 1,000 mg by mouth daily with breakfast. 1 9 Active ONE TOUCH DELICA 33 gauge USE ONCE D UTD 3 9 Active doxazosin (CARDURA) 2 mg tablet TK 1 T PO QD 2 8 Active cholecalciferol , vitamin D3, 1,000 unit Active ONETOUCH VERIO Strip TEST BS QD 2 9 Active glipiZIDE (GLUCOTROL XL) 5 mg Extended [...] MG) BY MOUTH DAILY 90 Tablet 3 5 Active anastrozole (ARIMIDEX) 1 mg tablet TAKE 1 TABLET(1 MG) BY MOUTH DAILY 90 Tablet 3 4 11/19/19 25 Discontinued Active Problems Problem Noted Date Diagnosed Date Ductal carcinoma in situ (DCIS) of right breast 04/05/2018 SERM use (selective estrogen receptor modulator) 04/05/2018 Encounters Date Type Department Care Team Description 12/04/2024 External Device Data [facility] Provider, Abstract 11/27/2024 External Device Data [facility] Provider, Abstract 11/18/2024 Refill [facility] Oncology and Hematology - [place] [address] [place] [address] Pola Marquez MD 10/08/2024 External Device Data [facility] Provider, [...] on file Legal Sex Female 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 Gender Identity Not on file Sexual Orientation [...] st Contact Info) Description 01/10/2025 10:30 AM KNITTING MACHINE FIXER HEAD Office Visit [facility] Oncology and Hematology - [place] [address] [place] [address] Pola Marquez MD [address] [facility] [address] [place] [address] Health Maintenance Due Date Last [...] Discontinued Insurance MEDICARE PART A AND B [facility] MEDICARE PART A AND B [facility] Care Teams Electrical Machine Builder Relationship Specialty Start Date End Date Margarita Britton MD [address] [place] [address] PCP - General Family Practice 08/15/22
== END 2024-12-09 08:16 | disposition home or self-care (01) ==
LOC: ANHFOHIMG 08:18
PROVIDERS: PCP Family Medicine; Visit Provider Student in an Organized Health Care Education/Training Program
DX: Z78.0 Asymptomatic menopausal state (principal)
CPT/HCPCS: 77080

== ENCOUNTER 2025-01-06 08:25 | Outpatient (CLI) | payer MEDICARE, SELFPAY ==
--- OUTSIDE RECORDS SUMMARY | 2025-01-06 08:40 | XMS_ITS | Clinical Summary ---
Author Organization [facility] Address [address], [facility] [address] [place] [address] Phone Care Team Providers Care Early Years Teacher Name Role Phone Sheng Kelley MD Unavailable [phone] Provider, Not On File Primary Care Provider [...] Comments Blood Pressure 140/78 03/26/2020 10:34 AM HADOOP DEVELOPER Pulse 104 03/26/2020 10:34 AM HADOOP DEVELOPER Temperature 36.6 C (97.8 F) 03/26/2020 10:34 AM HADOOP DEVELOPER Respiratory Rate 16 03/26/2020 10:34 AM HADOOP DEVELOPER Oxygen Saturation 97% 03/26/2020 10:34 AM HADOOP DEVELOPER Inhaled Oxygen Concentration - - Weight 77.7 kg (171 lb 3.2 oz) 03/26/2020 10:34 AM HADOOP DEVELOPER Height 162.6 cm (5' 4) 03/26/2020 10:34 AM HADOOP DEVELOPER Body Mass Index 29.39 03/26/2020 10:34 AM HADOOP DEVELOPER Plan of Treatment Health Maintenance Due Date [...] Most Recently Relevant to Health Maintenance Insurance [facility] MEDICARE Member Subscriber Plan / Payer (Ef fective 2010-Present) Name:Veronica Caicedo Member ID:[id number] Relation to Subscriber:Self Name:MariferVeronica Abigail Subscriber ID:[id number] Payer ID:[id number] Group ID:Not on file Type:Not on file Address: [place] [phone] MEDICARE [facility] Care Teams Early Years Teacher Relationship Specialty Start Date End Date Provider, Not On File [place] PCP - General 03/26/20 Sheng eKlley MD Consulting Physician Oncology 03/31/17
--- OUTSIDE RECORDS SUMMARY | 2025-01-06 08:40 | XMS_ITS | Clinical Summary ---
Author Organization [facility] Address [address] [place] [address] Care Team Providers Care Interlocking Installer Name Role Phone Brennan Kendrick MD Primary Care Provider [phone] Source Comments [facility],non-owned Affiliates and Associated Physician Practices is amultiple site organization consisting of ambulatory clinics and hospital sitesin [place], [place], [place] and [place]. This disclosure is being madepursuant to the Care Everywhere program and may not contain all information available regarding this patient. 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
--- OUTSIDE RECORDS SUMMARY | 2025-01-06 08:40 | XMS_ITS | Clinical Summary ---
Author Organization [facility] Address [address] [place] [address] Care Team Providers Care Watch Inspector Name Role Phone Margarita Britton MD Primary Care Provider [phone] Allergies No known active allergies Medications valACYclovir [...] MG) BY MOUTH DAILY 90 Tablet 3 11/18/2024 Active Active Problems Problem Noted Date Diagnosed Date Ductal carcinoma in situ (DCIS) of right breast 04/05/2018 SERM use (selective estrogen receptor modulator) 04/05/2018 Encounters Date Type Department Care Team Description 12/04/2024 External Device Data [facility] Provider, Abstract 11/27/2024 External Device Data [facility]STRA[facility] Provider, Abstract 11/18/2024 Refill [facility] Oncology and [facility] [address] [place] [address] Pola Marquez MD 10/08/2024 External [...] file Legal Sex Female 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 Gender Identity Not on file Sexual Orientation [...] Contact Info) Description 01/10/2025 10:30 AM SALES AND BUSINESS DEVELOPMENT MANAGER Office Visit [facility] Oncology and [facility] [address] [place] [id number] [place] [address] [place] [address] [address] [place] [address] Health Maintenance Due Date Last [...] Discontinued Insurance MEDICARE PART A AND B [facility] MEDICARE PART A AND B BC[employer] SUPP Care Teams Watch Inspector Relationship Specialty Start Date End Date Margarita Britton MD [address] [place] [address] PCP - General Family Practice 08/15/22
[2025-01-06 09:20] LABS: Hematocrit 37.9 % (37.0-47.0); Hemoglobin 12.2 g/dL (12.0-15.0); Immature Granulocyte Percent A 0.3 % (0-0.5); Lymphocytes Absolute Auto 1.91 K/mm3 (0.9-3.2); Mean Corpuscular HGB Conc 32.2 g/dl (32-36); Mean Corpuscular Hemoglobin 28.5 pg (26-34); Mean Corpuscular Volume 88.6 fl (80-100); Nucleated Red Blood Cells Absolute Auto 0.000 K/mm3 (0.0-0.012); Nucleated Red Blood Cells Perc 0.0 % (0.0-0.2); Platelet Count Result 211 k/mm3 (150-375); Red Blood Count 4.28 M/mm3 (4.2-5.4); White Blood Count 6.1 K/mm3 (4.5-10.0)
[2025-01-06 11:56] LABS: Alanine Aminotransferase 15 U/L (6-35); Albumin Level 3.8 g/dL (3.5-5.1); Alkaline Phosphatase 63 U/L (38-126); Aspartate Amino Transferase 20 U/L (14-36); Bilirubin,Total 0.6 mg/dL (0.2-1.3); Blood Urea Nitrogen 19 mg/dL (7-17); Calcium 9.1 mg/dL (8.4-10.2); Carbon Dioxide 25 mmol/L (22-30); Chloride 107 mmol/L (98-107); Estimated Glomerular Filt Rate 35; Glucose 218 mg/dL (65-110); Total Protein 6.7 g/dL (6.3-8.2)
[2025-01-06 12:05] LABS: Anion Gap 6 mmol/L (4-12); Potassium 4.4 mmol/L (3.4-5.0); Sodium 138 mmol/L (137-145)
== END 2025-01-06 08:26 | disposition home or self-care (01) ==
PROVIDERS: PCP Family Medicine; Visit Provider Internal Medicine Hematology & Oncology
DX: C50.411 Malignant neoplasm of upper-outer quadrant of right female breast (principal); Z17.0 Estrogen receptor positive status [ER+]
CPT/HCPCS: 36415; 80053; 85025; 86300